=== PATIENT | female | born 1970 | race African-American/Black ===

== ENCOUNTER 2016-10-27 21:24 | Emergency (ER) | payer SELFPAY ==
[~2016-10-27] VITALS: Ht 162.6 cm; Wt 60.8 kg
[~2016-10-27 21:24] MED LIST: AMLO5TAB2 PO; AMOX1TAB10 PO; Amoxicillin PO; CARV12.52 PO; CARV6.252 PO; CEPH-264 PO; CIPR250T30 PO; CIPR500T94 PO; DOCU-27 PO; DOXY100T9 PO; FLUC100T7 PO; FLUC200T PO; FURO40TA4 PO; GABA-586 PO; INSU100C SQ; INSU100I27 SQ; INSU100V8 SQ; LISI-334 PO; LISI10TA2 PO; LISI1TAB3 PO; LISI20TA PO; LISI40TA PO; OXYC-244 PO; PANT40TA5 PO; POTA10TA12 PO; PROC10TA2 PO; SULF1TAB24 PO; VORI200T2 PO; lisinopril
[2016-10-27 21:50] VITALS: BP 189/104
[2016-10-27 22:33] LABS: BILIRUBIN,URINE NEGATIVE (NEG); GLUCOSE,URINE 250 mg/dL (NEG); NITRITE,URINE NEGATIVE (NEG); PH,URINE 6.5; PROTEIN,URINE 100 mg/dL (NEG-TRACE); UROBILINOGEN,URINE 0.2 mg/dL (0.2 mg/dL)
[2016-10-27 22:50] LABS: BACTERIA,URINE FEW /HPF (0-FEW); RBC,URINE OCC /HPF (0-2); SQUAMOUS EPITHELIAL CELL,UR FEW /LPF; WBC,URINE TNTC /HPF (0-4)
[2016-10-27 22:57] LABS: BASO # 0.1 x10^3/uL (0.0-0.2); BASO % 1 % (0-3); EOS % 2 % (0-3); HEMATOCRIT 31.9 % (36.0-47.0); HEMOGLOBIN 10.1 g/dL (12.0-15.5); LYMPH # 3.3 x10^3/uL (1.0-4.8); LYMPH % 27 % (24-48); MEAN CORPUSCULAR HEMOGLOBIN 24 pg (25-35); MEAN CORPUSCULAR HGB CONC 32 g/dL (31-37); MEAN CORPUSCULAR VOLUME 76 fL (79-100); MONO % 8 % (0-9); NEUT % 62 % (31-73); PLATELET COUNT 372 x10^3/uL (140-400); RED BLOOD COUNT 4.23 x10^6/uL (3.50-5.40); RED CELL DISTRIBUTION WIDTH 16.9 % (11.5-14.5); WHITE BLOOD COUNT 12.3 x10^3/uL (4.0-11.0)
[2016-10-27] MEDS ORDERED: KETOROLAC TROMETHAMINE 30 MG/ML SYRINGE. IV ONE (23:00)
[2016-10-27] MEDS ORDERED: ONDANSETRON PF 4 MG/2 ML VIAL. IV ONE (23:00)
--- NOTE | 2016-10-27 23:24 | PHYS DOC ---
Past Medical History Past Medical History: Anemia, CHF, Diabetes-Type II, Fibromyalgia, Hypertension , Sickle Cell Disease, Other Additional Past Medical Histor: Blood clot to R)leg, hypoalbuminemia, lower ext edema Past Surgical History: Cholecystectomy, Oophorectomy, Tubal ligation, Other Additional Past Surgical Histo: Drainage tube for gall bladder. , kidney stents x2, removal of left ovary Alcohol Use: None Drug Use: None Adult General Chief Complaint Chief Complaint: ABDOMINAL PAIN HPI HPI Patient is a 46 year old female who presents with bilateral low back pain and bilateral lower abdominal pain that started today around noon. She states both pains started approximately the same time and are achy and constant. She thinks this feels like prior urinary tract infections. She states she just finished antibiotics yesterday from prior admission, ciprofloxacin. She denies fever or chills, nausea or vomiting, dysuria, hematuria, vaginal bleeding or discharge, constipation, diarrhea. Review of Systems Review of Systems Constitutional: Denies fever or chills [] Eyes: Denies change in visual acuity, redness, or eye pain [] HENT: Denies nasal congestion or sore throat [] Respiratory: Denies cough or shortness of breath [] Cardiovascular: No additional information not addressed in HPI [] GI: Denies nausea, vomiting, bloody stools or diarrhea [] : Denies dysuria or hematuria [] Musculoskeletal: Denies joint pain [] Integument: Denies rash or skin lesions [] Neurologic: Denies headache, focal weakness or sensory changes [] Endocrine: Denies polyuria or polydipsia [] Current Medications Current Medications Current Medications Medications (Trade) Dose Ordered Sig/[facility] Start Time Stop Time Status Last Admin Dose Admin Ketorolac Tromethamine (Toradol) 10 mg 1X ONCE 10/27/16 23:00 10/27/16 23:01 DC 10/27/16 22:55 10 MG Ondansetron HCl (Zofran) 4 mg 1X ONCE 10/27/16 23:00 10/27/16 23:01 DC 10/27/16 22:54 4 MG Allergies Allergies Allergies Coded Allergies Type Severity Reaction Last Updated Verified No Known Medication Allergies Allergy Unknown 09/10/16 Yes oxycodone Adverse Reaction Intermediate Nausea 10/22/16 Yes Physical Exam Physical Exam Constitutional: Well developed, well nourished, no acute distress, non-toxic appearance. [] HENT: Normocephalic, atraumatic, bilateral external ears normal, oropharynx moist, nose normal. [] Eyes: PERRLA, EOMI. [] Neck: Normal range of motion, supple. [] Cardiovascular:Heart rate regular rhythm [] Lungs & Thorax: Bilateral breath sounds clear to auscultation [] Abdomen: Bowel sounds normal, soft, minimal bilateral lower abdominal tenderness , no pulsatile masses. [] Skin: Warm, dry, no erythema, no rash. [] Back: No midline spinal tenderness, no CVA tenderness. Has bilateral lumbar paraspinal tenderness with no visual or palpable abnormality [] Extremities: No tenderness, ROM intact, 2+ bilateral lower extremity edema. [] Neurologic: Alert and oriented X 3, normal motor function, normal sensory function, no focal deficits noted. [] Psychologic: Affect normal, judgement normal, mood normal. [] Current Patient Data Vital Signs Vital Signs Date Time Temp Pulse Resp B/P Pulse Ox O2 Delivery O2 Flow Rate FiO2 10/27/16 21:50 98.7 102 22 189/104 99 Room Air 98.7 Lab Values Laboratory Tests Test 10/27/16 21:55 10/27/16 22:15 Urine Collection Type Unknown Urine Color Yellow Urine Clarity Cloudy Urine pH 6.5 Urine Specific [place] 1.010 Urine Protein 100mg/dL (NEG-TRACE) Urine Glucose (UA) 250mg/dL (NEG) Urine Ketones (Stick) Negativemg/dL (NEG) Urine Blood Small (NEG) Urine Nitrite Negative (NEG) Urine Bilirubin Negative (NEG) Urine Urobilinogen Dipstick 0.2mg/dL (0.2 mg/dL) Urine Leukocyte Esterase Large (NEG) Urine RBC Occ/HPF (0-2) Urine WBC Tntc/HPF (0-4) Urine Squamous Epithelial Cells Few/LPF Urine Bacteria Few/HPF (0-FEW) White Blood Count 12.3x10^3/uL (4.0-11.0) H Red Blood Count 4.23x10^6/uL (3.50-5.40) Hemoglobin 10.1g/dL (12.0-15.5) L Hematocrit 31.9% (36.0-47.0) L Mean Corpuscular Volume 76fL (79-100) L Mean Corpuscular Hemoglobin 24pg (25-35) L Mean Corpuscular Hemoglobin Concent 32g/dL (31-37) Red Cell Distribution Width 16.9% (11.5-14.5) H Platelet Count 372x10^3/uL (140-400) Neutrophils (%) (Auto) 62% (31-73) Lymphocytes (%) (Auto) 27% (24-48) Monocytes (%) (Auto) 8% (0-9) Eosinophils (%) (Auto) 2% (0-3) Basophils (%) (Auto) 1% (0-3) Neutrophils # (Auto) 7.7x10^3uL (1.8-7.7) Lymphocytes # (Auto) 3.3x10^3/uL (1.0-4.8) Monocytes # (Auto) 0.9x10^3/uL (0.0-1.1) Eosinophils # (Auto) 0.2x10^3/uL (0.0-0.7) Basophils # (Auto) 0.1x10^3/uL (0.0-0.2) Sodium Level 135mmol/L (136-145) L Potassium Level 4.9mmol/L (3.5-5.1) Chloride Level 99mmol/L (98-107) Carbon Dioxide Level 28mmol/L (21-32) Anion Gap 8 (6-14) Blood Urea Nitrogen 37mg/dL (7-20) H Creatinine 1.9mg/dL (0.6-1.0) H Estimated GFR (Cockcroft-Gault) 34.3 Glucose Level 196mg/dL (70-99) H Calcium Level 8.7mg/dL (8.5-10.1) Laboratory Tests 10/27/16 22:15 Laboratory Tests 10/27/16 22:15 Course & Med Decision Making Course & Med Decision Making Pertinent Labs and Imaging studies reviewed. (See chart for details) Laboratory examination is unremarkable. Her urine appears very similar to prior examinations, and has rarely grown bacteria. She has undergone therapy for yeast in urine. She is to follow-up with urology at [facility] and has this appointment for next week. No narcotics were given during this encounter as she drove herself to the emergency department. Return precautions given. She understands plan. Dragon Disclaimer Dragon Disclaimer This electronic medical record was generated, in whole or in part, using a voice recognition dictation system. Departure Departure Impression: Primary Impression: Abdominal pain Additional Impression: Back pain Disposition: 01 HOME, SELF-CARE Condition: STABLE Referrals: NO PCP (PCP) Patient Instructions: Back Pain, Adult, [id number] Additional Instructions: Take Tylenol or ibuprofen as they for pain. Follow-up with your primary care doctor. Return for any concerns. Problem Qualifiers Primary Impression: Abdominal pain Abdominal location: lower abdomen, unspecified Qualified Code: R10.30 - Lower abdominal pain, unspecified Additional Impression: Back pain Back pain location: low back pain Chronicity: acute Back pain laterality: bilateral Sciatica presence: without sciatica Qualified Code: M54.5 - Low back pain Linden KEN MD Oct 27, 2016 23:24
[2016-10-27 23:27] LABS: CALCIUM 8.7 mg/dL (8.5-10.1); CREATININE 1.9 mg/dL (0.6-1.0); GFR 34.3; POTASSIUM 4.9 mmol/L (3.5-5.1)
== END 2016-10-27 23:45 | disposition home or self-care (01) ==
LOC: ER 21:26
DX: M54.5 Low back pain (principal); R10.30 Lower abdominal pain, unspecified; I11.0 Hypertensive heart disease with heart failure; I50.9 Heart failure, unspecified; M79.7 Fibromyalgia; E11.9 Type 2 diabetes mellitus without complications; Z87.440 Personal history of urinary (tract) infections; Z90.49 Acquired absence of other specified parts of digestive tract; Z90.721 Acquired absence of ovaries, unilateral; Z98.51 Tubal ligation status; Z88.5 Allergy status to narcotic agent
CPT/HCPCS: 36415; 80048; 81001; 85027; 96374; 96375; 99284; J1885; J2405; 87086

== ENCOUNTER 2016-11-02 19:59 | Emergency (ER) | payer SELFPAY ==
[~2016-11-02] VITALS: Ht 152.4 cm; Wt 60.8 kg
[2016-11-02 20:46] LABS: BILIRUBIN,URINE NEGATIVE (NEG); GLUCOSE,URINE >=1000 mg/dL (NEG); NITRITE,URINE NEGATIVE (NEG); PROTEIN,URINE 100 mg/dL (NEG-TRACE); UROBILINOGEN,URINE 0.2 mg/dL (0.2 mg/dL)
[2016-11-02 20:53] LABS: BACTERIA,URINE MODERATE /HPF (0-FEW); SQUAMOUS EPITHELIAL CELL,UR FEW /LPF; WBC,URINE TNTC /HPF (0-4)
[2016-11-02 21:22] LABS: BASO % 0 % (0-3); EOS % 1 % (0-3); HEMATOCRIT 31.7 % (36.0-47.0); HEMOGLOBIN 10.3 g/dL (12.0-15.5); LYMPH # 2.3 x10^3/uL (1.0-4.8); LYMPH % 22 % (24-48); MEAN CORPUSCULAR HEMOGLOBIN 24 pg (25-35); MEAN CORPUSCULAR HGB CONC 32 g/dL (31-37); MEAN CORPUSCULAR VOLUME 75 fL (79-100); MONO % 15 % (0-9); NEUT % 62 % (31-73); PLATELET COUNT 250 x10^3/uL (140-400); RED BLOOD COUNT 4.24 x10^6/uL (3.50-5.40); RED CELL DISTRIBUTION WIDTH 16.3 % (11.5-14.5); WHITE BLOOD COUNT 10.6 x10^3/uL (4.0-11.0)
[2016-11-02 21:30] VITALS: BP 167/94
[2016-11-02 21:30] LABS: CALCIUM 9.2 mg/dL (8.5-10.1); CREATININE 2.1 mg/dL (0.6-1.0); GFR 30.5; POTASSIUM 4.6 mmol/L (3.5-5.1)
[2016-11-02] MEDS ORDERED: IV NORMAL SALINE 1000ML BAG 1,000 ML IV SCH (21:30)
[2016-11-02] MEDS ORDERED: MORPHINE SULFATE 4 MG/ML DISP.SYRIN. IV ONE (21:30)
[2016-11-02 21:36] LABS: ALBUMIN 2.8 g/dL (3.4-5.0); ALBUMIN/GLOBULIN RATIO 0.5 (1.0-1.7); TOTAL BILIRUBIN 0.4 mg/dL (0.2-1.0); TOTAL PROTEIN 8.7 g/dL (6.4-8.2)
--- NOTE | 2016-11-02 22:26 | RAD ---
PROCEDURE CT of the abdomen and pelvis without contrast HISTORY Left-sided abdominal pain. Nausea. Vomiting. COMPARISON July 15, 2016. TECHNIQUE No intravenous or oral contrast as per request. Exposure: One or more of the following individualized dose reduction techniques were utilized for this exam: 1. Automated exposure control. 2. Adjustment of the mA and/or kV according to patient size. 3. Use of iterative reconstruction technique. FINDINGS Lung bases are clear. No evidence of pneumoperitoneum. Evaluation of solid viscera, GI tract and vasculature is limited by the noncontrast technique. The liver appears mildly enlarged measuring 21 centimeters cephalocaudal. This is similar to the prior study. Spleen grossly unremarkable. The pancreas is difficult to separate from adjacent on opacified bowel loops and difficult to evaluate. No evidence of an obvious adrenal mass. There is hydronephrosis of both kidneys with ureter dilatation. Bilateral stents are identified. On the right this begins in the lower right renal pelvis and extends to the urinary bladder. On the left, this begins in the proximal left ureter and extends to the urinary bladder. There is a calculus within the lower pole of the left kidney, also seen previously. There is some distention of the urinary bladder. Diffuse urinary bladder wall thickening this is greatest at the anterosuperior urinary bladder. This was also seen on the previous study. A urinary bladder tumor is not excludable. No evidence of ascites. No significant enlargement of visualized lymph nodes. There is degenerative spondylosis at the lumbosacral junction. IMPRESSION 1. Chronic bilateral hydronephrosis and ureter dilatation. Bilateral ureter stents now identified. The proximal aspect of the right stent is in the lower right renal pelvis. The proximal aspect of the left stent is in the upper left ureter. 2. Left nephrolithiasis. 3. Irregular urinary bladder wall thickening also seen previously. Findings could indicate chronic cystitis, chronic bladder outlet obstruction or neuropathic bladder. Urinary bladder wall tumor not excludable. Electronically signed by: Ramon Richards MD (Nov 02, 2016 22:25:39)
--- NOTE | 2016-11-03 00:34 | PHYS DOC ---
Past Medical History Past Medical History: Anemia, CHF, Diabetes-Type II, Fibromyalgia, Hypertension , Sickle Cell Disease, Other Additional Past Medical Histor: Blood clot to R)leg, hypoalbuminemia, lower ext edema Past Surgical History: Cholecystectomy, Oophorectomy, Tubal ligation, Other Additional Past Surgical Histo: Drainage tube for gall bladder. , kidney stents x2, removal of left ovary Alcohol Use: None Drug Use: None Adult General Chief Complaint Chief Complaint: PAIN ON URINATION HPI HPI Patient is a 46 year old female that presents with vomiting, diarrhea and a fever of 100.8 yesterday. Reports she has not taken any antipyretics today and has tolerated her po meds without difficulty but states vomiting and diarrhea since yesterday. Reports was seen here on 10/27/16 for bladder infection. Denies any urianry symptoms. Review of Systems Review of Systems Constitutional: Fever 100.8 yesterday Eyes: Denies change in visual acuity, redness, or eye pain HENT: Denies nasal congestion or sore throat Respiratory: Denies cough or shortness of breath Cardiovascular: No additional information not addressed in HPI GI: Abdominal pain, n/v/d : Denies dysuria or hematuria Musculoskeletal: Denies back pain or joint pain Integument: Denies rash or skin lesions Neurologic: Denies headache, focal weakness or sensory changes [] Endocrine: Denies polyuria or polydipsia [] Current Medications Current Medications Current Medications Medications (Trade) Dose Ordered Sig/[facility] Start Time Stop Time Status Last Admin Dose Admin Morphine Sulfate 4 mg 1X ONCE 11/02/16 21:30 11/02/16 21:31 DC 11/02/16 22:10 4 MG Sodium Chloride (Iv Sodium Chloride 0.9% 1000ml Bag) 1,000 ml @ 1,000 mls/hr Q1H 11/02/16 21:30 11/02/16 22:29 DC 11/02/16 22:10 1,000 MLS/HR Allergies Allergies Allergies Coded Allergies Type Severity Reaction Last Updated Verified No Known Medication Allergies Allergy Unknown 09/10/16 Yes oxycodone Adverse Reaction Intermediate Nausea 10/22/16 Yes Physical Exam Physical Exam Constitutional: Well developed, well nourished, no acute distress, non-toxic appearance. HENT: Normocephalic, atraumatic, bilateral external ears normal, oropharynx moist, no oral exudates, nose normal. Eyes: PERRLA, EOMI, conjunctiva normal, no discharge. Neck: Normal range of motion, no tenderness, supple, no stridor. Cardiovascular:Heart rate regular rhythm, no murmur Lungs & Thorax: Bilateral breath sounds clear to auscultation Abdomen: Bowel sounds normal, soft, no masses, no pulsatile masses. Tenderness throughout Skin: Warm, dry, no erythema, no rash. Back: No tenderness, no CVA tenderness. Extremities: No tenderness, no cyanosis, no clubbing, ROM intact, no edema. Neurologic: Alert and oriented X 3, normal motor function, normal sensory function, no focal deficits noted. Psychologic: Affect normal, judgement normal, mood normal. Current Patient Data Vital Signs Vital Signs Date Time Temp Pulse Resp B/P Pulse Ox O2 Delivery O2 Flow Rate FiO2 11/02/16 22:10 22 99 Room Air 11/02/16 20:15 99.3 114 162/108 99.3 Lab Values Laboratory Tests Test 11/02/16 20:20 11/02/16 21:10 11/02/16 23:29 Urine Collection Type Unknown Urine Color Yellow Urine Clarity Turbid Urine pH 6.0 Urine Specific [place] 1.015 Urine Protein 100mg/dL (NEG-TRACE) Urine Glucose (UA) >=1000mg/dL (NEG) Urine Ketones (Stick) Negativemg/dL (NEG) Urine Blood Moderate (NEG) Urine Nitrite Negative (NEG) Urine Bilirubin Negative (NEG) Urine Urobilinogen Dipstick 0.2mg/dL (0.2 mg/dL) Urine Leukocyte Esterase Large (NEG) Urine RBC 1-2/HPF (0-2) Urine WBC Tntc/HPF (0-4) Urine Squamous Epithelial Cells Few/LPF Urine Bacteria Moderate/HPF (0-FEW) White Blood Count 10.6x10^3/uL (4.0-11.0) Red Blood Count 4.24x10^6/uL (3.50-5.40) Hemoglobin 10.3g/dL (12.0-15.5) L Hematocrit 31.7% (36.0-47.0) L Mean Corpuscular Volume 75fL (79-100) L Mean Corpuscular Hemoglobin 24pg (25-35) L Mean Corpuscular Hemoglobin Concent 32g/dL (31-37) Red Cell Distribution Width 16.3% (11.5-14.5) H Platelet Count 250x10^3/uL (140-400) Neutrophils (%) (Auto) 62% (31-73) Lymphocytes (%) (Auto) 22% (24-48) L Monocytes (%) (Auto) 15% (0-9) H Eosinophils (%) (Auto) 1% (0-3) Basophils (%) (Auto) 0% (0-3) Neutrophils # (Auto) 6.6x10^3uL (1.8-7.7) Lymphocytes # (Auto) 2.3x10^3/uL (1.0-4.8) Monocytes # (Auto) 1.5x10^3/uL (0.0-1.1) H Eosinophils # (Auto) 0.1x10^3/uL (0.0-0.7) Basophils # (Auto) 0.0x10^3/uL (0.0-0.2) Sodium Level 130mmol/L (136-145) L Potassium Level 4.6mmol/L (3.5-5.1) Chloride Level 95mmol/L (98-107) L Carbon Dioxide Level 27mmol/L (21-32) Anion Gap 8 (6-14) Blood Urea Nitrogen 47mg/dL (7-20) H Creatinine 2.1mg/dL (0.6-1.0) H Estimated GFR (Cockcroft-Gault) 30.5 BUN/Creatinine Ratio 22 (6-20) H Glucose Level 274mg/dL (70-99) H Lactic Acid Level 1.2mmol/L (0.4-2.0) Calcium Level 9.2mg/dL (8.5-10.1) Total Bilirubin 0.4mg/dL (0.2-1.0) Aspartate Amino Transferase (AST) 16U/L (15-37) Alanine Aminotransferase (ALT) 27U/L (14-59) Alkaline Phosphatase 165U/L (46-116) H Total Protein 8.7g/dL (6.4-8.2) H Albumin 2.8g/dL (3.4-5.0) L Albumin/Globulin Ratio 0.5 (1.0-1.7) L Lipase 73U/L (73-393) Glucose (Fingerstick) 143mg/dL (70-99) H Laboratory Tests 11/02/16 21:10 Laboratory Tests 11/02/16 21:10 EKG EKG [] Radiology/Procedures Radiology/Procedures [] Impressions: 1. Vomiting and diarrhea Course & Med Decision Making Course & Med Decision Making Pertinent Labs and Imaging studies reviewed. (See chart for details) Urine showed large leukocyte esterase and Tntc bacteria as with several urines in the past. Review of micro show no growth. Instructed patient to follow up with urology to discuss. Today and past labs reviewed, often flucuations in BUN and creatinine. Patient has had no nausea, vomiting, diarrhea, or fever during 4 hour visit and tolerating po fluids iwthout difficulty. HR 99, BP 112/73, RA Sat 99%. Patient awake and alert and denies pain at this time. Instructed patient to call a ride for discharge home, discussed plan of care and given return precautions which she agreed and verbalized. Dragon Disclaimer Dragon Disclaimer This electronic medical record was generated, in whole or in part, using a voice recognition dictation system. Departure Departure Impression: Primary Impression: UTI (lower urinary tract infection) Additional Impression: Nausea, vomiting and diarrhea Disposition: HOME, SELF-CARE Condition: STABLE Referrals: NO PCP (PCP) Patient Instructions: Nausea and Vomiting, [id number] Additional Instructions: 1. Call our urologist Friday morning to follow up 2. Return if problems or concerns Problem Qualifiers ELIO HARPER APRN Nov 03, 2016 00:34
== END 2016-11-03 01:26 | disposition home or self-care (01) ==
LOC: ER 19:59
DX: N39.0 Urinary tract infection, site not specified (principal); R11.2 Nausea with vomiting, unspecified; R19.7 Diarrhea, unspecified; E11.9 Type 2 diabetes mellitus without complications; M79.7 Fibromyalgia; I11.0 Hypertensive heart disease with heart failure; I50.9 Heart failure, unspecified; Z90.49 Acquired absence of other specified parts of digestive tract; Z98.51 Tubal ligation status; Z90.721 Acquired absence of ovaries, unilateral; Z87.442 Personal history of urinary calculi; Z88.5 Allergy status to narcotic agent
CPT/HCPCS: 36415; 74176; 80053; 81001; 82947; 83605; 83690; 85027; 87040; 87086; 96361; 96374; 99285; J2270; J7030

== ENCOUNTER 2016-11-10 17:56 | Emergency (ER) | payer SELFPAY ==
[~2016-11-10] VITALS: Ht 162.6 cm; Wt 59.0 kg
[2016-11-10 18:22] LABS: BILIRUBIN,URINE NEGATIVE (NEG); GLUCOSE,URINE NEGATIVE (NEG); NITRITE,URINE NEGATIVE (NEG); PROTEIN,URINE >=300 mg/dL (NEG-TRACE); UROBILINOGEN,URINE 0.2 mg/dL (0.2 mg/dL)
[2016-11-10] MEDS ORDERED: LEVOFLOXACIN 500 MG TABLET PO ONE (18:30)
[2016-11-10] MEDS ORDERED: PHENAZOPYRIDINE 200 MG TABLET. PO ONE (18:30)
[2016-11-10 18:41] LABS: BACTERIA,URINE FEW /HPF (0-FEW); SQUAMOUS EPITHELIAL CELL,UR FEW /LPF; WBC,URINE TNTC /HPF (0-4)
[2016-11-10] MEDS ORDERED: LEVO500T38 PO (19:07)
[2016-11-10] MEDS ORDERED: PHEN-318 PO (19:07)
[2016-11-10] MEDS ORDERED: HYDR-971 PO (19:07)
--- NOTE | 2016-11-10 19:08 | PHYS DOC ---
Past Medical History Past Medical History: Anemia, CHF, Diabetes-Type II, Fibromyalgia, Hypertension , Sickle Cell Disease, Other Additional Past Medical Histor: Blood clot to R)leg, hypoalbuminemia, lower ext edema Past Surgical History: Cholecystectomy, Oophorectomy, Tubal ligation, Other Additional Past Surgical Histo: Drainage tube for gall bladder. , kidney stents x2, removal of left ovary Alcohol Use: None Drug Use: None Adult General Chief Complaint Chief Complaint: PAIN ON URINATION HPI HPI 46-year-old female with a history of multiple urinary tract infections presents with painful urination and suprapubic pain. She states is been ongoing over the last day or 2. She denies any flank pain. She denies any high fever at home. She denies any nausea or vomiting. She states it's been 10 days since she's taken antibiotics. [] Review of Systems Review of Systems Constitutional: Denies fever or chills [] Eyes: Denies change in visual acuity, redness, or eye pain [] HENT: Denies nasal congestion or sore throat [] Respiratory: Denies cough or shortness of breath [] Cardiovascular: No additional information not addressed in HPI [] GI: Denies abdominal pain, nausea, vomiting, bloody stools or diarrhea [] : Per history of present illness [] Musculoskeletal: Denies back pain or joint pain [] Integument: Denies rash or skin lesions [] Neurologic: Denies headache, focal weakness or sensory changes [] Endocrine: Denies polyuria or polydipsia [] Current Medications Current Medications Current Medications Medications (Trade) Dose Ordered Sig/[facility] Start Time Stop Time Status Last Admin Dose Admin Levofloxacin (Levaquin) 500 mg 1X ONCE 11/10/16 18:30 11/10/16 18:31 DC 11/10/16 18:45 500 MG Phenazopyridine HCl (Pyridium) 200 mg 1X ONCE 11/10/16 18:30 11/10/16 18:31 DC 11/10/16 18:45 200 MG Allergies Allergies Allergies Coded Allergies Type Severity Reaction Last Updated Verified No Known Medication Allergies Allergy Unknown 09/10/16 Yes oxycodone Adverse Reaction Intermediate Nausea 10/22/16 Yes Physical Exam Physical Exam Constitutional: Well developed, well nourished, mild distress, non-toxic appearance. [] HENT: Normocephalic, atraumatic, bilateral external ears normal, oropharynx moist, no oral exudates, nose normal. [] Eyes: PERRLA, EOMI, conjunctiva normal, no discharge. [] Neck: Normal range of motion, no tenderness, supple, no stridor. [] Cardiovascular:Heart rate regular rhythm, no murmur [] Lungs & Thorax: Bilateral breath sounds clear to auscultation [] Abdomen: Bowel sounds normal, soft, no tenderness, no masses, no pulsatile masses. [] Skin: Warm, dry, no erythema, no rash. [] Back: No tenderness, no CVA tenderness. [] Extremities: No tenderness, no cyanosis, no clubbing, ROM intact, no edema. [] Neurologic: Alert and oriented X 3, normal motor function, normal sensory function, no focal deficits noted. [] Psychologic: Affect normal, judgement normal, mood normal. [] Current Patient Data Vital Signs Vital Signs Date Time Temp Pulse Resp B/P Pulse Ox O2 Delivery O2 Flow Rate FiO2 11/10/16 18:04 98.5 93 18 96 Room Air 98.5 Lab Values Laboratory Tests Test 11/10/16 18:10 Urine Collection Type Unknown Urine Color Yellow Urine Clarity Turbid Urine pH 6.0 Urine Specific [place] 1.010 Urine Protein >=300mg/dL (NEG-TRACE) Urine Glucose (UA) Negativemg/dL (NEG) Urine Ketones (Stick) Negativemg/dL (NEG) Urine Blood Moderate (NEG) Urine Nitrite Negative (NEG) Urine Bilirubin Negative (NEG) Urine Urobilinogen Dipstick 0.2mg/dL (0.2 mg/dL) Urine Leukocyte Esterase Large (NEG) Urine RBC 1-2/HPF (0-2) Urine WBC Tntc/HPF (0-4) Urine Squamous Epithelial Cells Few/LPF Urine Bacteria Few/HPF (0-FEW) EKG EKG [] Radiology/Procedures Radiology/Procedures [] Course & Med Decision Making Course & Med Decision Making Pertinent Labs and Imaging studies reviewed. (See chart for details) [] Dragon Disclaimer Dragon Disclaimer This electronic medical record was generated, in whole or in part, using a voice recognition dictation system. Departure Departure Impression: Primary Impression: UTI (urinary tract infection) Disposition: 01 HOME, SELF-CARE Condition: STABLE Referrals: NO PCP (PCP) Patient Instructions: Urinary Tract Infection Additional Instructions: Thank you for allowing us to participate in your care today. Followup with your primary care physician in 3 days if your symptoms do not improve. Return to the emergency department you have any new or concerning findings. This should be evaluated by the primary care physician and any necessary consulting services for continued management within a few days after discharge. Return to emergency room if you have any new or concerning symptoms including but not limited to fever, chills, nausea, vomiting, intractable pain, any new rashes, chest pain, shortness of air, uncontrolled bleeding, difficulty breathing, and/or vision loss. You may have been prescribed medication that can change in your level of thinking and ability to operate machinery. These medications include hydrocodone and Ativan. Also, Benadryl has been known to do this as well. Be sure to check with your pharmacist and ask if the medications you've prescribed can affect your level of consciousness. I recommend not operating heavy machinery or driving while on medication such as these. Scripts Phenazopyridine Hcl (Pyridium)200 Mg [id number] Mg PO Q8HRS PRN DYSURIA #10 TAB Prov:TETE FRIEDMAN DO 11/10/16 Hydrocodone/[place] 5-325 ([place] 5-325 Tablet)1 Each Tablet1 Tab PO PRN Q6HRS PRN PAIN #20 TAB Prov:TETE FRIEDMAN DO 11/10/16 Levofloxacin (Levaquin)500 Mg Tablet1 Tab PO DAILY urinary tract infection #10 TAB Prov:TETE FRIEDMAN DO 11/10/16 Problem Qualifiers Primary Impression: UTI (urinary tract infection) Urinary tract infection type: acute cystitis Hematuria presence: without hematuria Qualified Code: N30.00 - Acute cystitis without hematuria TETE FRIEDMAN DO Nov 10, 2016 19:08
[2016-11-10 19:18] VITALS: BP 160/105
== END 2016-11-10 19:20 | disposition home or self-care (01) ==
LOC: ER 17:56
DX: N30.00 Acute cystitis without hematuria (principal); I11.0 Hypertensive heart disease with heart failure; I50.9 Heart failure, unspecified; E11.9 Type 2 diabetes mellitus without complications; M79.7 Fibromyalgia; Z90.49 Acquired absence of other specified parts of digestive tract; Z98.51 Tubal ligation status; Z90.79 Acquired absence of other genital organ(s); Z88.5 Allergy status to narcotic agent
CPT/HCPCS: 81001; 87086; 99284

== ENCOUNTER 2016-11-21 04:05 | Inpatient (IN) | payer OTHER ==
[~2016-11-21] VITALS: Ht 162.6 cm; Wt 61.2 kg
[~2016-11-21 04:05] MED LIST changes: +HYDR-971 PO; +LEVO500T38 PO; +PHEN-318 PO
[2016-11-21] MEDS ORDERED: IV NORMAL SALINE 1000ML BAG 1,000 ML IV SCH (04:45)
[2016-11-21] MEDS ORDERED: ONDANSETRON PF 4 MG/2 ML VIAL. IV ONE ×2 (04:45→05:45)
[2016-11-21 04:51] LABS: BASO # 0.2 x10^3/uL (0.0-0.2); BASO % 2 % (0-3); EOS % 1 % (0-3); HEMATOCRIT 32.8 % (36.0-47.0); HEMOGLOBIN 10.3 g/dL (12.0-15.5); LYMPH # 1.6 x10^3/uL (1.0-4.8); LYMPH % 12 % (24-48); MEAN CORPUSCULAR HEMOGLOBIN 23 pg (25-35); MEAN CORPUSCULAR HGB CONC 31 g/dL (31-37); MEAN CORPUSCULAR VOLUME 75 fL (79-100); MONO % 5 % (0-9); NEUT % 81 % (31-73); PLATELET COUNT 295 x10^3/uL (140-400); RED BLOOD COUNT 4.39 x10^6/uL (3.50-5.40); RED CELL DISTRIBUTION WIDTH 15.5 % (11.5-14.5); WHITE BLOOD COUNT 13.1 x10^3/uL (4.0-11.0)
[2016-11-21 04:51] LABS: BILIRUBIN,URINE NEGATIVE (NEG); GLUCOSE,URINE 500 mg/dL (NEG); NITRITE,URINE NEGATIVE (NEG); UROBILINOGEN,URINE 0.2 mg/dL (0.2 mg/dL)
[2016-11-21 04:58] LABS: BARBITURATES NEG (NEG); BENZODIAZEPINES NEG (NEG); CANNABINOIDS NEG (NEG); COCAINE NEG (NEG); ETHANOL, URINE NEG (NEG); METHADONE NEG (NEG); OPIATES POS (NEG); PHENCYCLIDINE NEG (NEG)
[2016-11-21 05:03] LABS: CALCIUM 9.4 mg/dL (8.5-10.1); CREATININE 2.4 mg/dL (0.6-1.0); GFR 26.2; POTASSIUM 4.7 mmol/L (3.5-5.1)
[2016-11-21 05:03] LABS: PROTEIN,URINE 30 mg/dL (NEG-TRACE)
[2016-11-21 05:04] LABS: BACTERIA,URINE FEW /HPF (0-FEW); RBC,URINE OCC /HPF (0-2); SQUAMOUS EPITHELIAL CELL,UR OCC /LPF; WBC,URINE TNTC /HPF (0-4); YEAST,URINE PRESENT /HPF
[2016-11-21 05:09] LABS: ALBUMIN 2.8 g/dL (3.4-5.0); ALBUMIN/GLOBULIN RATIO 0.5 (1.0-1.7); TOTAL BILIRUBIN 0.4 mg/dL (0.2-1.0); TOTAL PROTEIN 8.9 g/dL (6.4-8.2)
[2016-11-21] MEDS ORDERED: IV NORMAL SALINE 1000ML BAG 1,000 ML IV ONE (05:30)
[2016-11-21] MEDS ORDERED: DEXTROSE 50% 25 GM / 50ML DISP.SYRIN. IV PRN (05:30)
[2016-11-21] MEDS ORDERED: ONDANSETRON PF 4 MG/2 ML VIAL. IV PRN ×2 (06:30→07:52)
[2016-11-21] MEDS ORDERED: ACETAMINOPHEN 325 MG TABLET. PO PRN (06:30)
--- NOTE | 2016-11-21 06:30 | ED.ADGEN ---
Past Medical History Past Medical History: Anemia, CHF, Diabetes-Type I, Fibromyalgia, Hypertension , Sickle Cell Disease, Other Additional Past Medical Histor: Blood clot to R)leg, hypoalbuminemia, lower ext edema Past Surgical History: Cholecystectomy, Oophorectomy, Tubal ligation, Other Additional Past Surgical Histo: Drainage tube for gall bladder. , kidney stents x2, removal of left ovary Alcohol Use: None Drug Use: None Adult General Chief Complaint Chief Complaint: NAUSEA/VOMITING/DIARRHA HPI HPI Patient is a 46 year old woman, history of type 2 diabetes mellitus, hypertension, hyperlipidemia, kidney stents in place, chronic urinary tract infection, who presents to the emergency department with complaint of chills, nausea, vomiting, lower quadrant abdominal pain for the past several days. Patient was admitted on the of this month for abdominal pain, and urinary complaints, did sign an AGAINST MEDICAL ADVICE. Patient has been told multiple times to follow-up with urology. It experiencing some dysuria. She has not done so at this point. She states that she is taking medications as directed, however her blood glucose in the ED is noted to be 468. Patient with emesis in the emergency department, denies blood or bile in emesis, states her last bowel movement was earlier today, she did have some diarrhea, states that the abdominal pain is "typical", denies fevers, chills as stated, no focal weakness emesis or tingling, no cough, no nasal congestion, no shortness of breath, no chest pain. Denies any injuries. Has not followed up with urology this point, and does not have a primary care provider. Review of Systems Review of Systems Constitutional: Denies fever, complaining of chills. Eyes: Denies change in visual acuity. [] HENT: Denies nasal congestion or sore throat. [] Respiratory: Denies cough or shortness of breath. [] Cardiovascular: Denies chest pain or edema. [] GI: Lower quadrant abdominal pain associated nausea, vomiting, no bloody stools or diarrhea. [] : Denies dysuria. [] Musculoskeletal: Denies back pain or joint pain. [] Integument: Denies rash. [] Neurologic: Denies headache, focal weakness or sensory changes. [] Endocrine: Denies polyuria or polydipsia. [] Lymphatic: Denies swollen glands. [] Psychiatric: Denies depression or anxiety. [] Current Medications Current Medications Current Medications Medications (Trade) Dose Ordered Sig/Therese Start Time Stop Time Status Last Admin Dose Admin Ondansetron HCl (Zofran) 4 mg 1X ONCE 11/21/16 04:45 11/21/16 04:46 DC 11/21/16 04:46 4 MG Sodium Chloride (Iv Sodium Chloride 0.9% 1000ml Bag) 1,000 ml @ 1,000 mls/hr Q1H 11/21/16 04:45 11/21/16 05:44 DC 11/21/16 04:47 1,000 MLS/HR Allergies Allergies Allergies Coded Allergies Type Severity Reaction Last Updated Verified No Known Medication Allergies Allergy Unknown 09/10/16 Yes Physical Exam Physical Exam Constitutional: Well developed, well nourished, mild distress secondary to pain and nausea, ill in appearance. HENT: Normocephalic, atraumatic, bilateral external ears normal, oropharynx moist, no oral exudates, nose normal. [] Eyes: PERRLA, EOMI, conjunctiva normal, no discharge. [] Neck: Normal range of motion, no tenderness, supple, no stridor. [] Cardiovascular:Heart rate regular rhythm, no murmur , S1, S2, rubs or gallops. [ ] Lungs & Thorax: Bilateral breath sounds clear to auscultation, no wheezing, rhonchi, rales. No chest or crepitus or tenderness. [] Abdomen: Bowel sounds normal, soft, mild tenderness to palpation in the suprapubic region and the lower quadrant, no rebound, rigidity, no guarding, no masses, no pulsatile masses. [] Skin: Warm, dry, no erythema, no rash. [] Back: No tenderness, mild bilateral CVA tenderness. [] Extremities: No tenderness, no cyanosis, no clubbing, ROM intact, no edema. [] Neurologic: Alert and oriented X 3, normal motor function, normal sensory function, no focal deficits noted. [] Psychologic: Affect normal, judgement normal, mood normal. [] Current Patient Data Vital Signs Vital Signs Date Time Temp Pulse Resp B/P Pulse Ox O2 Delivery O2 Flow Rate FiO2 11/21/16 04:12 98.2 100 18 178/107 100 Room Air 98.2 Lab Values Laboratory Tests Test 11/21/16 04:10 11/21/16 04:22 Urine Collection Type Unknown Urine Color Yellow Urine Clarity Turbid Urine pH 6.0 Urine Specific [place] 1.010 Urine Protein 30mg/dL (NEG-TRACE) Urine Glucose (UA) 500mg/dL (NEG) Urine Ketones (Stick) Negativemg/dL (NEG) Urine Blood Moderate (NEG) Urine Nitrite Negative (NEG) Urine Bilirubin Negative (NEG) Urine Urobilinogen Dipstick 0.2mg/dL (0.2 mg/dL) Urine Leukocyte Esterase Large (NEG) Urine RBC Occ/HPF (0-2) Urine WBC Tntc/HPF (0-4) Urine Squamous Epithelial Cells Occ/LPF Urine Bacteria Few/HPF (0-FEW) Urine Yeast Present/HPF Urine Opiates Screen Pos (NEG) Urine Methadone Screen Neg (NEG) Urine Barbiturates Neg (NEG) Urine Phencyclidine Screen Neg (NEG) Urine Amphetamine/Methamphetamine Neg (NEG) Urine Benzodiazepines Screen Neg (NEG) Urine Cocaine Screen Neg (NEG) Urine Cannabinoids Screen Neg (NEG) Urine Ethyl Alcohol Neg (NEG) White Blood Count 13.1x10^3/uL (4.0-11.0) H Red Blood Count 4.39x10^6/uL (3.50-5.40) Hemoglobin 10.3g/dL (12.0-15.5) L Hematocrit 32.8% (36.0-47.0) L Mean Corpuscular Volume 75fL (79-100) L Mean Corpuscular Hemoglobin 23pg (25-35) L Mean Corpuscular Hemoglobin Concent 31g/dL (31-37) Red Cell Distribution Width 15.5% (11.5-14.5) H Platelet Count 295x10^3/uL (140-400) Neutrophils (%) (Auto) 81% (31-73) H Lymphocytes (%) (Auto) 12% (24-48) L Monocytes (%) (Auto) 5% (0-9) Eosinophils (%) (Auto) 1% (0-3) Basophils (%) (Auto) 2% (0-3) Neutrophils # (Auto) 10.6x10^3uL (1.8-7.7) H Lymphocytes # (Auto) 1.6x10^3/uL (1.0-4.8) Monocytes # (Auto) 0.6x10^3/uL (0.0-1.1) Eosinophils # (Auto) 0.1x10^3/uL (0.0-0.7) Basophils # (Auto) 0.2x10^3/uL (0.0-0.2) Sodium Level 129mmol/L (136-145) L Potassium Level 4.7mmol/L (3.5-5.1) Chloride Level 92mmol/L (98-107) L Carbon Dioxide Level 30mmol/L (21-32) Anion Gap 7 (6-14) Blood Urea Nitrogen 45mg/dL (7-20) H Creatinine 2.4mg/dL (0.6-1.0) H Estimated GFR (Cockcroft-Gault) 26.2 BUN/Creatinine Ratio 19 (6-20) Glucose Level 468mg/dL (70-99) H Calcium Level 9.4mg/dL (8.5-10.1) Total Bilirubin 0.4mg/dL (0.2-1.0) Aspartate Amino Transferase (AST) 29U/L (15-37) Alanine Aminotransferase (ALT) 39U/L (14-59) Alkaline Phosphatase 260U/L (46-116) H Total Protein 8.9g/dL (6.4-8.2) H Albumin 2.8g/dL (3.4-5.0) L Albumin/Globulin Ratio 0.5 (1.0-1.7) L Lipase 58U/L (73-393) L Laboratory Tests 11/21/16 04:22 Laboratory Tests 11/21/16 04:22 EKG EKG EC: Sinus rhythm, heart rate 90 bpm, left axis deviation, QTC of 427, [place] 144, QRS 86, contour normality is noted in the anterior septal leads, [address] elevations noted in V3, no other elevations or depressions identified, mild baseline artifact noted, abnormal ECG, does not meet STEMI criteria. As interpreted by me. Radiology/Procedures Radiology/Procedures Acute abdominal series: 3 view: Normal cardiopulmonary silhouette, no infiltrates, no effusions, no pneumothorax, no soft tissue or bony abnormalities identified. No evidence of air-fluid levels or small bowel obstruction. Stool bowel gas throughout. As interpreted by me. Course & Med Decision Making Course & Med Decision Making Pertinent Labs and Imaging studies reviewed. (See chart for details) Patient with several episodes of emesis in the ED, received IV fluids, antiemetics, blood glucose of 468 on arrival. Urinalysis was positive for glucose, no ketones, no anion gap identified. Patient again noted to have too numerous to wbc's, some bacteria in the urine. Review previous cultures reveals the patient had chronic [place] infection in the urine, previous no from urology indicated use antibiotics and follow cultures. As patient now has a leukocytosis, with left shift, evidence of worsening renal insufficiency with a creatinine of 2.4 and elevated blood urea nitrogen, with examination consistent with pyelonephritis, patient did receive IV fluids in the ED, initial dose of ceftriaxone, will follow cultures and adjust medications as needed as discussed with Dr. Marte of internal medicine, who did accept the patient to her service as a full admission to the medical telemetry floor, bridge orders written per request for consultation with urology, although the patient has been seen by Dr. Blue multiple times and has failed to follow-up as an outpatient, and initiation of insulin protocol. Urine cultures are pending at this time. Patient transferred to the floor without issue. Dragon Disclaimer Dragon Disclaimer This electronic medical record was generated, in whole or in part, using a voice recognition dictation system. Departure Impression: Primary Impression: Pyelonephritis Additional Impressions: Hyperglycemia Nausea, vomiting and diarrhea Noncompliance w/medication treatment due to intermit use of medication Disposition: 09 ADMITTED INPATIENT Condition: IMPROVED Problem Qualifiers THOMAS THOMAS DO Nov 21, 2016 06:30
--- NOTE | 2016-11-21 06:39 | EKG ---
[facility] [address] [place] [address] Test Date: 2016-11-21 Test Time: 04:54:30 Pat Name: WENDI WEST Department: Room: 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
[2016-11-21 06:55] VITALS: BP 146/100
--- NOTE | 2016-11-21 07:15 | RAD ---
Abdomen series with chest, 3 views, 11/21/2016: History: Abdominal pain and vomiting Comparison is made to a study from 10/10/2016. Bilateral ureteral stents remain in place, unchanged in positions. The abdominal gas pattern is unremarkable. No free air is seen in the abdomen. There is no evidence of organomegaly. There is an unchanged radiopacity projected over the lower pole of the left kidney compatible with a persistent intrarenal calculus. Lower pelvic calcifications are compatible with phleboliths. The heart size is normal. The lungs are clear. There is no evidence of pleural fluid. IMPRESSION: 1. Bilateral ureteral stents are unchanged in positions. 2. Left intrarenal calculus. 3. No acute abnormality is detected.
[2016-11-21] MEDS ORDERED: INSULIN ASPART 300 UNITS/3 ML INSULN.PEN SQ SCH (08:00)
[2016-11-21] MEDS: MORPHINE SULFATE 2 MG/ML DISP.SYRIN. IV PRN ×3 (08:23→22:10)
[2016-11-21] MEDS: IV NORMAL SALINE 1000ML BAG 1,000 ML IV SCH ×2 (08:45→19:47)
[2016-11-21] MEDS ORDERED: INSULIN ASPART 300 UNITS/3 ML INSULN.PEN SQ ONE (08:45)
--- NOTE | 2016-11-21 09:34 | PDOC1 ---
History and Physical Past Medical History Cardiovascular: CHF, HTN Pulmonary: No pertinent hx CENTRAL NERVOUS SYSTEM: Other GI: GERD Heme/Onc: Sickle cell disease, Other Hepatobiliary: No pertinent hx Psych: No pertinent hx Rheumatologic: No pertinent hx Infectious disease: No pertinent hx Renal/: Other Endocrine: Diabetes Past Surgical History Past Surgical History: Cholecystectomy, Tubal Ligation, Other Family History Family History: Diabetes Social History ALCOHOL: none Drugs: None Current Problem List Problem List Problems Medical Problems: (1) Hyperglycemia Status: Acute (2) Nausea, vomiting and diarrhea Status: Acute (3) Noncompliance w/medication treatment due to intermit use ofmedication Status: Acute (4) Pyelonephritis Status: Acute Current Medications Current Medications Current Medications Medications (Trade) Dose Ordered Sig/Therese Start Time Stop Time Status Last Admin Dose Admin Acetaminophen (Tylenol) 650 mg PRN Q4HRS PRN 11/21/16 06:30 11/22/16 06:29 Dextrose 12.5 gm PRN Q15MIN PRN 11/21/16 05:30 Insulin Aspart (Novolog) 15 units 1X ONCE 11/21/16 08:45 11/21/16 08:46 DC 11/21/16 08:45 15 UNITS Morphine Sulfate 2 mg PRN Q2HR PRN 11/21/16 08:00 11/21/16 08:23 2 MG Ondansetron HCl (Zofran) 4 mg PRN Q6HRS PRN 11/21/16 07:52 Ondansetron HCl 4 mg 4 mg PRN Q8HRS PRN 11/21/16 06:30 11/21/16 07:57 DC 11/21/16 07:21 4 MG Sodium Chloride (Iv Sodium Chloride 0.9% 1000ml Bag) 1,000 ml @ 100 mls/hr Q10H 11/21/16 06:30 11/22/16 06:29 11/21/16 08:45 100 MLS/HR Allergies Allergies Allergies Coded Allergies Type Severity Reaction Last Updated Verified No Known Medication Allergies Allergy Unknown 09/10/16 Yes ROS Review of System CONSTITUTIONAL: No fever or chills EYES: No recent changes SKIN: No rash or itching CARDIOVASCULAR: No chest pain, syncope, palpitations, or edema RESPIRATORY: No SOB or cough GASTROINTESTINAL: nausea, vomiting or abdominal pain NEUROLOGICAL: No headaches or weakness ENDOCRINE: No cold or heat intolerance GENITOURINARY: No urgency or frequency of urination MUSCULOSKELETAL: No back pain or joint pain LYMPHATICS: No enlarged lymph nodes PSYCHIATRIC: No anxiety or depression Physical Exam Physical Exam GEN.: No apparent distress. Alert and oriented. fatigue HEENT: Head is normocephalic, atraumatic NECK: Supple.no jvd LUNGS: Clear to auscultation. normal airflow HEART: RRR, S1, S2 present. Peripheral pulses intact ABDOMEN: Soft, nontender. Positive bowel sounds. EXTREMITIES: Without any cyanosis. NEUROLOGIC: Normal speech, normal tone PSYCHIATRIC: Normal affect, normal mood. SKIN: No visible ulcerations Vitals Vitals Vital Signs Date Time Temp Pulse Resp B/P Pulse Ox O2 Delivery O2 Flow Rate FiO2 11/21/16 08:56 99 Room Air 11/21/16 06:55 97.5 94 17 146/100 97.5 Labs Labs Laboratory Tests Test 11/21/16 04:10 11/21/16 04:22 11/21/16 06:56 Urine Collection Type Unknown Urine Color Yellow Urine Clarity Turbid Urine pH 6.0 Urine Specific [place] 1.010 Urine Protein 30mg/dL (NEG-TRACE) Urine Glucose (UA) 500mg/dL (NEG) Urine Ketones (Stick) Negativemg/dL (NEG) Urine Blood Moderate (NEG) Urine Nitrite Negative (NEG) Urine Bilirubin Negative (NEG) Urine Urobilinogen Dipstick 0.2mg/dL (0.2 mg/dL) Urine Leukocyte Esterase Large (NEG) Urine RBC Occ/HPF (0-2) Urine WBC Tntc/HPF (0-4) Urine Squamous Epithelial Cells Occ/LPF Urine Bacteria Few/HPF (0-FEW) Urine Yeast Present/HPF Urine Opiates Screen Pos (NEG) Urine Methadone Screen Neg (NEG) Urine Barbiturates Neg (NEG) Urine Phencyclidine Screen Neg (NEG) Urine Amphetamine/Methamphetamine Neg (NEG) Urine Benzodiazepines Screen Neg (NEG) Urine Cocaine Screen Neg (NEG) Urine Cannabinoids Screen Neg (NEG) Urine Ethyl Alcohol Neg (NEG) White Blood Count 13.1x10^3/uL (4.0-11.0) Red Blood Count 4.39x10^6/uL (3.50-5.40) Hemoglobin 10.3g/dL (12.0-15.5) Hematocrit 32.8% (36.0-47.0) Mean Corpuscular Volume 75fL (79-100) Mean Corpuscular Hemoglobin 23pg (25-35) Mean Corpuscular Hemoglobin Concent 31g/dL (31-37) Red Cell Distribution Width 15.5% (11.5-14.5) Platelet Count 295x10^3/uL (140-400) Neutrophils (%) (Auto) 81% (31-73) Lymphocytes (%) (Auto) 12% (24-48) Monocytes (%) (Auto) 5% (0-9) Eosinophils (%) (Auto) 1% (0-3) Basophils (%) (Auto) 2% (0-3) Neutrophils # (Auto) 10.6x10^3uL (1.8-7.7) Lymphocytes # (Auto) 1.6x10^3/uL (1.0-4.8) Monocytes # (Auto) 0.6x10^3/uL (0.0-1.1) Eosinophils # (Auto) 0.1x10^3/uL (0.0-0.7) Basophils # (Auto) 0.2x10^3/uL (0.0-0.2) Sodium Level 129mmol/L (136-145) Potassium Level 4.7mmol/L (3.5-5.1) Chloride Level 92mmol/L (98-107) Carbon Dioxide Level 30mmol/L (21-32) Anion Gap 7 (6-14) Blood Urea Nitrogen 45mg/dL (7-20) Creatinine 2.4mg/dL (0.6-1.0) Estimated GFR (Cockcroft-Gault) 26.2 BUN/Creatinine Ratio 19 (6-20) Glucose Level 468mg/dL (70-99) Calcium Level 9.4mg/dL (8.5-10.1) Total Bilirubin 0.4mg/dL (0.2-1.0) Aspartate Amino Transf (AST/SGOT) 29U/L (15-37) Alanine Aminotransferase (ALT/SGPT) 39U/L (14-59) Alkaline Phosphatase 260U/L (46-116) Total Protein 8.9g/dL (6.4-8.2) Albumin 2.8g/dL (3.4-5.0) Albumin/Globulin Ratio 0.5 (1.0-1.7) Lipase 58U/L (73-393) Glucose (Fingerstick) 485mg/dL (70-99) Laboratory Tests Test 11/21/16 04:10 11/21/16 04:22 11/21/16 06:56 Urine Collection Type Unknown Urine Color Yellow Urine Clarity Turbid Urine pH 6.0 Urine Specific [place] 1.010 Urine Protein 30mg/dL (NEG-TRACE) Urine Glucose (UA) 500mg/dL (NEG) Urine Ketones (Stick) Negativemg/dL (NEG) Urine Blood Moderate (NEG) Urine Nitrite Negative (NEG) Urine Bilirubin Negative (NEG) Urine Urobilinogen Dipstick 0.2mg/dL (0.2 mg/dL) Urine Leukocyte Esterase Large (NEG) Urine RBC Occ/HPF (0-2) Urine WBC Tntc/HPF (0-4) Urine Squamous Epithelial Cells Occ/LPF Urine Bacteria Few/HPF (0-FEW) Urine Yeast Present/HPF Urine Opiates Screen Pos (NEG) Urine Methadone Screen Neg (NEG) Urine Barbiturates Neg (NEG) Urine Phencyclidine Screen Neg (NEG) Urine Amphetamine/Methamphetamine Neg (NEG) Urine Benzodiazepines Screen Neg (NEG) Urine Cocaine Screen Neg (NEG) Urine Cannabinoids Screen Neg (NEG) Urine Ethyl Alcohol Neg (NEG) White Blood Count 13.1x10^3/uL (4.0-11.0) Red Blood Count 4.39x10^6/uL (3.50-5.40) Hemoglobin 10.3g/dL (12.0-15.5) Hematocrit 32.8% (36.0-47.0) Mean Corpuscular Volume 75fL (79-100) Mean Corpuscular Hemoglobin 23pg (25-35) Mean Corpuscular Hemoglobin Concent 31g/dL (31-37) Red Cell Distribution Width 15.5% (11.5-14.5) Platelet Count 295x10^3/uL (140-400) Neutrophils (%) (Auto) 81% (31-73) Lymphocytes (%) (Auto) 12% (24-48) Monocytes (%) (Auto) 5% (0-9) Eosinophils (%) (Auto) 1% (0-3) Basophils (%) (Auto) 2% (0-3) Neutrophils # (Auto) 10.6x10^3uL (1.8-7.7) Lymphocytes # (Auto) 1.6x10^3/uL (1.0-4.8) Monocytes # (Auto) 0.6x10^3/uL (0.0-1.1) Eosinophils # (Auto) 0.1x10^3/uL (0.0-0.7) Basophils # (Auto) 0.2x10^3/uL (0.0-0.2) Sodium Level 129mmol/L (136-145) Potassium Level 4.7mmol/L (3.5-5.1) Chloride Level 92mmol/L (98-107) Carbon Dioxide Level 30mmol/L (21-32) Anion Gap 7 (6-14) Blood Urea Nitrogen 45mg/dL (7-20) Creatinine 2.4mg/dL (0.6-1.0) Estimated GFR (Cockcroft-Gault) 26.2 BUN/Creatinine Ratio 19 (6-20) Glucose Level 468mg/dL (70-99) Calcium Level 9.4mg/dL (8.5-10.1) Total Bilirubin 0.4mg/dL (0.2-1.0) Aspartate Amino Transf (AST/SGOT) 29U/L (15-37) Alanine Aminotransferase (ALT/SGPT) 39U/L (14-59) Alkaline Phosphatase 260U/L (46-116) Total Protein 8.9g/dL (6.4-8.2) Albumin 2.8g/dL (3.4-5.0) Albumin/Globulin Ratio 0.5 (1.0-1.7) Lipase 58U/L (73-393) Glucose (Fingerstick) 485mg/dL (70-99) VTE Prophylaxis Ordered VTE Prophylaxis Devices: Yes VTE Pharmacological Prophylaxi: No ALEXUS BURDEN MD Nov 21, 2016 09:34
[2016-11-21] MEDS ORDERED: PHENAZOPYRIDINE 200 MG TABLET. PO PRN (09:45)
[2016-11-21] MEDS ORDERED: OXYCODONE/APAP 7.5/325 TABLET. PO PRN (09:45)
[2016-11-21] MEDS: FLUCONAZOLE 100 MG TABLET. PO SCH (10:03)
[2016-11-21] MEDS: PROCHLORPERAZINE 5 MG TABLET. PO SCH ×2 (10:03→21:51)
[2016-11-21] MEDS: CEFTRIAXONE SODIUM 1 GM in IV NORMAL SALINE 50ML 50 ML IV SCH (10:04)
[2016-11-21 11:02] VITALS: BP 102/71
[2016-11-21] MEDS: INSULIN ASPART 300 UNITS/3 ML INSULN.PEN SQ SCH ×4 (13:01→18:27)
[2016-11-21] MEDS ORDERED: ALPRAZOLAM 0.25 MG TABLET PO ONE (14:45)
[2016-11-21 15:10] VITALS: BP 123/89
[2016-11-21 19:45] VITALS: BP 97/69
[2016-11-21] MEDS: INSULIN DETEMIR 300 UNITS/3 ML INSULN.PEN. SQ SCH (21:00)
--- NOTE | 2016-11-21 22:20 | HP ---
ADMIT DATE: 11/21/2016 CHIEF COMPLAINT: Nausea, vomiting and diarrhea. HISTORY OF PRESENT ILLNESS: This is a 46-year-old -[place] female patient with several comorbid conditions such as type 1 diabetes, chronic diastolic heart failure, hypertension, presented to the ER with complaints of nausea, vomiting and diarrhea and abdominal discomfort. The patient had several admissions to the hospital for urinary tract infections and also she left few times against medical advice. Essentially, the patient had bilateral renal stents. From that point, she has been getting infected multiple times and admitted to the hospital; however, she states she followed with urologist at on 10/30. However, her kidney stents were not removed. The patient presented to the ER with complaints of hyperglycemia, nausea, vomiting and acute abdominal pain. At the time of my examination, the patient appears to be stable; however, her blood sugars were more than 400 and she was nauseous and even showed some funguria. The patient did not have a family doctor and also she has a component of noncompliance. PAST MEDICAL HISTORY: Please see my electronic H and P. REVIEW OF SYSTEMS: Please see my electronic H and P. PHYSICAL EXAMINATION: Please see my electronic H and P. LABORATORY FINDINGS: Blood sugar is 468, sodium 129, potassium 4.7, chloride is 92, anion gap is 7, BUN is 45, creatinine 2.4, protein is 8.9, lipase is 58. Hematology: Hemoglobin is 10.3, MCV is 75, platelets 295, neutrophils 81%. Toxicology: Negative except opioid screen positive. Urine: Protein 30, glucose 500, ketones negative, nitrites negative, bilirubin negative, leukocyte esterase large, yeast present. IMAGING STUDIES: Acute abdominal series: Bilateral ureteral stents, unchanged ____, left intrarenal calculus. ASSESSMENT: 1. Type 1 diabetes mellitus with hyperglycemia. 2. Urinary tract infection, funguria. 3. Bilateral renal stents. 4. Chronic diastolic heart failure. 5. Anemia. 6. Possible ILENE and CKD. PLAN: 1. She has been admitted for antibiotics. I will give her IV Rocephin and oral fluconazole. 2. Sliding scale insulin with IV hydration. Urology has been consulted, Dr. Blue. 3. We will resume her home medications, Levemir and sliding scale insulin. flavor room worker has been consulted. The patient did not have a family doctor. 4. She says she went to urologist at , but they did not remove her stents and the next step ____ watched. 5. Monitor labs, CBC, BMP and renal functions in a.m. 6. Overall prognosis guarded. ALEXUS BURDEN MD DR: BJ/mariusz JOB#: [id number] / [id number] DIANN
[2016-11-21 23:30] VITALS: BP 91/67
[2016-11-22] MEDS: DEXTROSE 50% 25 GM / 50ML DISP.SYRIN. IV PRN ×2 (02:30→05:29)
[2016-11-22] MEDS: MORPHINE SULFATE 2 MG/ML DISP.SYRIN. IV PRN ×4 (03:19→22:00)
[2016-11-22 03:48] VITALS: BP 140/98
[2016-11-22] MEDS: IV NORMAL SALINE 1000ML BAG 1,000 ML IV SCH (06:25)
[2016-11-22 07:20] VITALS: BP 139/95
[2016-11-22] MEDS: INSULIN ASPART 300 UNITS/3 ML INSULN.PEN SQ SCH ×6 (08:00→17:00)
[2016-11-22] MEDS: CEFTRIAXONE SODIUM 1 GM in IV NORMAL SALINE 50ML 50 ML IV SCH (08:40)
[2016-11-22] MEDS: FLUCONAZOLE 100 MG TABLET. PO SCH (08:40)
[2016-11-22] MEDS: PROCHLORPERAZINE 5 MG TABLET. PO SCH ×2 (08:40→21:18)
[2016-11-22] MEDS: HYDROCODONE/APAP 5/325MG TABLET. PO PRN ×2 (09:44→21:18)
--- NOTE | 2016-11-22 09:57 | PDOC ---
PROGRESS NOTES Chief Complaint Chief Complaint 1. Type 1 diabetes mellitus with hyperglycemia and Hypoglycemia 2. Urinary tract infection, funguria. 3. Bilateral ureter stents. 4. Chronic diastolic heart failure. 5. Anemia. 6. Possible ILENE and CKD. Plan IV rocephine and fluconazole Dr Mirza ramirezatoben noted, Ms Doty asked to see urologist at Hold insulin If BS < 200, IV Hydration labs reviwed prognosis guarded. History of Present Illness History of Present Illness no fever no chillls. Vitals Vitals Vital Signs Date Time Temp Pulse Resp B/P Pulse Ox O2 Delivery O2 Flow Rate FiO2 11/22/16 09:44 100 Room Air 1.0 11/22/16 07:20 97.5 86 18 139/95 97.5 Physical Exam General: Alert, Oriented X3 Heart: Normal S1, Normal S2 Lungs: Clear Abdomen: Normal bowel sounds, Soft Labs LABS Laboratory Tests Test 11/21/16 10:56 11/21/16 15:12 11/21/16 17:10 11/21/16 20:01 Glucose (Fingerstick) 202mg/dL (70-99) 68mg/dL (70-99) 221mg/dL (70-99) 203mg/dL (70-99) Test 11/22/16 00:01 11/22/16 02:22 11/22/16 02:35 11/22/16 05:25 Glucose (Fingerstick) 87mg/dL (70-99) 37mg/dL (70-99) 197mg/dL (70-99) 24mg/dL (70-99) Test 11/22/16 05:36 11/22/16 07:54 Glucose (Fingerstick) 196mg/dL (70-99) 82mg/dL (70-99) Assessment and Plan Assessmemt and Plan Problems Medical Problems: (1) Hyperglycemia Status: Acute (2) Nausea, vomiting and diarrhea Status: Acute (3) Noncompliance w/medication treatment due to intermit use ofmedication Status: Acute (4) Pyelonephritis Status: Acute Problems: Comment Review of Relevant I have reviewed the following items calin (where applicable) has been applied. Labs Laboratory Tests Test 11/21/16 04:10 11/21/16 04:22 11/21/16 04:36 11/21/16 06:03 Urine Collection Type Unknown Urine Color Yellow Urine Clarity Turbid Urine pH 6.0 Urine Specific [place] 1.010 Urine Protein 30mg/dL (NEG-TRACE) Urine Glucose (UA) 500mg/dL (NEG) Urine Ketones (Stick) Negativemg/dL (NEG) Urine Blood Moderate (NEG) Urine Nitrite Negative (NEG) Urine Bilirubin Negative (NEG) Urine Urobilinogen Dipstick 0.2mg/dL (0.2 mg/dL) Urine Leukocyte Esterase Large (NEG) Urine RBC Occ/HPF (0-2) Urine WBC Tntc/HPF (0-4) Urine Squamous Epithelial Cells Occ/LPF Urine Bacteria Few/HPF (0-FEW) Urine Yeast Present/HPF Urine Opiates Screen Pos (NEG) Urine Methadone Screen Neg (NEG) Urine Barbiturates Neg (NEG) Urine Phencyclidine Screen Neg (NEG) Urine Amphetamine/Methamphetamine Neg (NEG) Urine Benzodiazepines Screen Neg (NEG) Urine Cocaine Screen Neg (NEG) Urine Cannabinoids Screen Neg (NEG) Urine Ethyl Alcohol Neg (NEG) White Blood Count 13.1x10^3/uL (4.0-11.0) Red Blood Count 4.39x10^6/uL (3.50-5.40) Hemoglobin 10.3g/dL (12.0-15.5) Hematocrit 32.8% (36.0-47.0) Mean Corpuscular Volume 75fL (79-100) Mean Corpuscular Hemoglobin 23pg (25-35) Mean Corpuscular Hemoglobin Concent 31g/dL (31-37) Red Cell Distribution Width 15.5% (11.5-14.5) Platelet Count 295x10^3/uL (140-400) Neutrophils (%) (Auto) 81% (31-73) Lymphocytes (%) (Auto) 12% (24-48) Monocytes (%) (Auto) 5% (0-9) Eosinophils (%) (Auto) 1% (0-3) Basophils (%) (Auto) 2% (0-3) Neutrophils # (Auto) 10.6x10^3uL (1.8-7.7) Lymphocytes # (Auto) 1.6x10^3/uL (1.0-4.8) Monocytes # (Auto) 0.6x10^3/uL (0.0-1.1) Eosinophils # (Auto) 0.1x10^3/uL (0.0-0.7) Basophils # (Auto) 0.2x10^3/uL (0.0-0.2) Sodium Level 129mmol/L (136-145) Potassium Level 4.7mmol/L (3.5-5.1) Chloride Level 92mmol/L (98-107) Carbon Dioxide Level 30mmol/L (21-32) Anion Gap 7 (6-14) Blood Urea Nitrogen 45mg/dL (7-20) Creatinine 2.4mg/dL (0.6-1.0) Estimated GFR (Cockcroft-Gault) 26.2 BUN/Creatinine Ratio 19 (6-20) Glucose Level 468mg/dL (70-99) Calcium Level 9.4mg/dL (8.5-10.1) Total Bilirubin 0.4mg/dL (0.2-1.0) Aspartate Amino Transf (AST/SGOT) 29U/L (15-37) Alanine Aminotransferase (ALT/SGPT) 39U/L (14-59) Alkaline Phosphatase 260U/L (46-116) Total Protein 8.9g/dL (6.4-8.2) Albumin 2.8g/dL (3.4-5.0) Albumin/Globulin Ratio 0.5 (1.0-1.7) Lipase 58U/L (73-393) Glucose (Fingerstick) 458mg/dL (70-99) 446mg/dL (70-99) Test 11/21/16 06:56 11/21/16 10:56 11/21/16 15:12 11/21/16 17:10 Glucose (Fingerstick) 485mg/dL (70-99) 202mg/dL (70-99) 68mg/dL (70-99) 221mg/dL (70-99) Test 11/21/16 20:01 11/22/16 00:01 11/22/16 02:22 11/22/16 02:35 Glucose (Fingerstick) 203mg/dL (70-99) 87mg/dL (70-99) 37mg/dL (70-99) 197mg/dL (70-99) Test 11/22/16 05:25 11/22/16 05:36 11/22/16 07:54 Glucose (Fingerstick) 24mg/dL (70-99) 196mg/dL (70-99) 82mg/dL (70-99) Laboratory Tests Test 11/21/16 10:56 11/21/16 15:12 11/21/16 17:10 11/21/16 20:01 Glucose (Fingerstick) 202mg/dL (70-99) 68mg/dL (70-99) 221mg/dL (70-99) 203mg/dL (70-99) Test 11/22/16 00:01 11/22/16 02:22 11/22/16 02:35 11/22/16 05:25 Glucose (Fingerstick) 87mg/dL (70-99) 37mg/dL (70-99) 197mg/dL (70-99) 24mg/dL (70-99) Test 11/22/16 05:36 11/22/16 07:54 Glucose (Fingerstick) 196mg/dL (70-99) 82mg/dL (70-99) Medications Current Medications Sodium Chloride (Iv Sodium Chloride 0.9% 1000ml Bag) 1,000 ml @ 1,000 mls/hr Q1H IV Last administered on 11/21/16 04:47; Start 11/21/16 at 04:45; Stop at 05:44; Status DC Ondansetron HCl 4 mg 4 mg 1X ONCE IV Last administered on 11/21/16 04:46; Start 11/21/16 at 04:45; Stop 11/21/16 at 04:46; Status DC Sodium Chloride (Iv Sodium Chloride 0.9% 1000ml Bag) 1,000 ml @ 1,000 mls/hr 1X ONCE IV Last administered on 11/21/16 07:28; Start 11/21/16 at 05:30; Stop 11/21/16 at 06:29; Status DC Insulin Aspart (Novolog) 0-7 UNITS TIDWMEALS SQ ; Start 11/21/16 at 08:00; Stop 11/21/16 at 09:33; Status DC Dextrose 12.5 gm PRN Q15MIN PRN IV SEE COMMENTS; Start 11/21/16 at 05:30; Status Cancel Ondansetron HCl (Zofran) 4 mg 1X ONCE IV Last administered on 11/21/16 05:38 ; Start 11/21/16 at 05:45; Stop 11/21/16 at 05:46; Status DC Ondansetron HCl 4 mg 4 mg PRN Q8HRS PRN IV NAUSEA/VOMITING Last administered on 11/21/16 07:21; Start 11/21/16 at 06:30; Stop 11/21/16 at 07:57; Status DC Sodium Chloride (Iv Sodium Chloride 0.9% 1000ml Bag) 1,000 ml @ 100 mls/hr Q10H IV Last administered on 11/22/16 06:25; Start 11/21/16 at 06:30; Stop at 06:29; Status DC Acetaminophen (Tylenol) 650 mg PRN Q4HRS PRN PO FEVER; Start 11/21/16 at 06:30 ; Stop 11/22/16 at 06:29; Status DC Ondansetron HCl (Zofran) 4 mg PRN Q6HRS PRN IV NAUSEA/VOMITING; Start 11/21/16 at 07:52 Morphine Sulfate 2 mg PRN Q2HR PRN IV PAIN Last administered on 11/22/16 03:19 ; Start 11/21/16 at 08:00 Insulin Aspart (Novolog) 15 units 1X ONCE SQ Last administered on 11/21/16 08 :45; Start 11/21/16 at 08:45; Stop 11/21/16 at 08:46; Status DC Fluconazole (Diflucan) 100 mg DAILY PO Last administered on 11/22/16 08:40; Start 11/21/16 at 10:00 Insulin Aspart (Novolog) 0-9 UNITS TIDWMEALS SQ Last administered on 11/21/16 18:26; Start 11/21/16 at 12:00 Dextrose 12.5 gm 12.5 gm PRN Q15MIN PRN IV SEE COMMENTS Last administered on 05:29; Start 11/21/16 at 09:30 Ceftriaxone Sodium/Sodium Chloride (Rocephin/Iv Sodium Chloride 0.9% 50ml) 50 ml @ 100 mls/hr Q24H IV Last administered on 11/22/16 08:40; Start 11/21/16 at 10:00 Acetaminophen/ Hydrocodone Bitart (Lortab 5/325) 1 tab PRN Q6HRS PRN PO PAIN Last administered on 11/22/16 09:44; Start 11/21/16 at 09:45 Insulin Detemir (Levemir) 45 units QHS SQ Last administered on 11/21/16 21:00 ; Start 11/21/16 at 21:00 Oxycodone/ Acetaminophen (Percocet 7.5/ 325) 1 tab PRN Q6HRS PRN PO PAIN; Start 11/21/16 at 09:45 Phenazopyridine HCl (Pyridium) 200 mg PRN Q8HRS PRN PO DYSURIA; Start 11/21/16 at 09:45 Insulin Aspart (Novolog) 7 units TIDWMEALS SQ Last administered on 11/21/16 18 :27; Start 11/21/16 at 12:00 Prochlorperazine Maleate (Compazine) 10 mg BID PO Last administered on 08:40; Start 11/21/16 at 10:00 Alprazolam (Xanax) 0.25 mg 1X ONCE PO Last administered on 11/21/16 14:53; Start 11/21/16 at 14:45; Stop 11/21/16 at 14:49; Status DC Active Scripts Active Pyridium (Phenazopyridine Hcl) 200 Mg Tablet 200 Mg PO Q8HRS PRN [place] 5-325 Tablet (Acetaminophen/Hydrocodone Bitart) 1 Each Tablet 1 Tab PO PRN Q6HRS PRN Levemir Flextouch (Insulin Detemir) 100 Unit/1 Ml Insuln.pen 45 Units SQ QHS Furosemide 40 Mg Tablet 40 Mg PO DAILY Prochlorperazine Maleate 10 Mg Tablet 10 Mg PO BID Humalog (Insulin Lispro) 100 Unit/1 Ml Cartridge 7 Unit SQ TIDAC 30 Days Klor-Con M10 (Potassium Chloride) 10 Meq Tab.er.prt 10 Meq PO DAILYWBKFT Percocet 7.5-325 Mg Tablet (Oxycodone/Acetaminophen) 1 Each Tablet 1 Tab PO PRN Q6HRS PRN Vitals/I & O Vital Sign - Last 24 Hours 11/21/16 11/21/16 11/21/16 11/21/16 11:02 13:28 15:10 18:23 Temp 97.6 97.8 97.6 97.8 Pulse 80 83 Resp 17 B/P 102/71 123/89 Pulse Ox 99 99 99 O2 Delivery Room Air Nasal Cannula Room Air Nasal Cannula O2 Flow Rate 1.0 1.0 11/21/16 11/21/16 11/21/16 11/21/16 19:45 20:00 22:10 23:30 Temp 98.6 99.1 98.6 99.1 Pulse 86 87 Resp 16 14 20 B/P 97/69 91/67 Pulse Ox 98 98 O2 Delivery Room Air Room Air Room Air Room Air 11/22/16 11/22/16 11/22/16 11/22/16 03:19 03:45 03:48 07:20 Temp 98.3 97.5 98.3 97.5 Pulse 91 86 Resp 14 14 20 18 B/P 140/98 139/95 Pulse Ox 100 100 O2 Delivery Room Air Room Air Room Air Room Air 11/22/16 09:44 Pulse Ox 100 O2 Delivery Room Air O2 Flow Rate 1.0 Intake and Output 11/21/16 11/21/16 11/22/16 15:00 23:00 07:00 Intake Total 900 ml 1250 ml 1880 ml Balance 900 ml 1250 ml 1880 ml ALEXUS BURDEN MD Nov 22, 2016 09:57
[2016-11-22] MEDS ORDERED: FLUTICASONE 50MCG/NASAL SPRAY 16GM BOTTLE. NS PRN (10:15)
[2016-11-22 11:08] VITALS: BP 161/105
[2016-11-22] MEDS ORDERED: ALPRAZOLAM 0.25 MG TABLET PO ONE (11:30)
--- NOTE | 2016-11-22 11:35 | PDOC ---
Provider Note Provider Note UROLOGY: c/c Recurrent UTI's Patient well known to Urology Service, has been seen be 3 Urologist at [facility]. She is extremely non-compliant, does not take medications as instructed, does not keep appointments set up for her at Urology, as directed by Dr. Schuler for additional work-up. Impression: Recurrent UTI's Non-Compliant patient Renal insufficiency Status Post bilateral ureteral stents by Dr Schuler Suggest: Treat UTI according to C&S urine Follow up with urology per previous instructions by Dr. Schuler Thank-you, FRITZ RIVAS DO Nov 22, 2016 11:35
[2016-11-22 12:02] LABS: BASO % 0 % (0-3); EOS % 1 % (0-3); HEMATOCRIT 28.4 % (36.0-47.0); LYMPH # 1.9 x10^3/uL (1.0-4.8); LYMPH % 14 % (24-48); MEAN CORPUSCULAR HEMOGLOBIN 24 pg (25-35); MEAN CORPUSCULAR HGB CONC 32 g/dL (31-37); MEAN CORPUSCULAR VOLUME 74 fL (79-100); MONO % 9 % (0-9); NEUT % 76 % (31-73); PLATELET COUNT 263 x10^3/uL (140-400); RED BLOOD COUNT 3.84 x10^6/uL (3.50-5.40); RED CELL DISTRIBUTION WIDTH 15.7 % (11.5-14.5); WHITE BLOOD COUNT 13.6 x10^3/uL (4.0-11.0)
[2016-11-22 12:16] LABS: CALCIUM 8.1 mg/dL (8.5-10.1); CREATININE 2.3 mg/dL (0.6-1.0); GFR 27.5
[2016-11-22 12:17] LABS: POTASSIUM 5.4 mmol/L (3.5-5.1)
[2016-11-22 15:05] VITALS: BP 162/97
[2016-11-22 19:00] VITALS: BP 141/95
[2016-11-22] MEDS: INSULIN DETEMIR 300 UNITS/3 ML INSULN.PEN. SQ SCH (21:39)
[2016-11-22 23:00] VITALS: BP 154/106
[2016-11-22] MEDS ORDERED: ALPRAZOLAM 0.25 MG TABLET PO PRN (23:00)
[2016-11-23 03:00] VITALS: BP 170/112
[2016-11-23] MEDS: LABETALOL 20 MG/4 ML DISP.SYRIN. IVP PRN ×2 (04:13→11:14)
[2016-11-23] MEDS: MORPHINE SULFATE 2 MG/ML DISP.SYRIN. IV PRN ×2 (04:15→11:22)
[2016-11-23 07:30] VITALS: BP 112/77
[2016-11-23] MEDS: FLUCONAZOLE 100 MG TABLET. PO SCH (08:52)
[2016-11-23] MEDS: PROCHLORPERAZINE 5 MG TABLET. PO SCH (08:52)
[2016-11-23] MEDS: INSULIN ASPART 300 UNITS/3 ML INSULN.PEN SQ SCH ×4 (08:55→11:21)
--- NOTE | 2016-11-23 09:20 | PDOC ---
PROGRESS NOTES Chief Complaint Chief Complaint 1. Type 1 diabetes mellitus with hyperglycemia and Hypoglycemia 2. Urinary tract infection, funguria. 3. Bilateral ureter stents. 4. Chronic diastolic heart failure. 5. Anemia. 6. Possible ILENE and CKD. Plan IV Rocephin and fluconazole Dr Blue recommendatoben noted, Ms Doty asked to see urologist at Hold insulin If BS < 200, IV Hydration labs reviwed prognosis guarded. out pt follow up with Labs pending Pt wants to go home. History of Present Illness History of Present Illness no fever no chillls. Vitals Vitals Vital Signs Date Time Temp Pulse Resp B/P Pulse Ox O2 Delivery O2 Flow Rate FiO2 11/23/16 07:30 97.7 77 18 112/77 94 Room Air 97.7 11/22/16 17:19 1.0 Physical Exam General: Alert, Oriented X3 Heart: Normal S1, Normal S2 Lungs: Clear Abdomen: Normal bowel sounds, Soft Labs LABS Laboratory Tests Test 11/22/16 11:03 11/22/16 11:45 11/22/16 16:55 11/22/16 20:02 Glucose (Fingerstick) 105mg/dL (70-99) 123mg/dL (70-99) 161mg/dL (70-99) White Blood Count 13.6x10^3/uL (4.0-11.0) Red Blood Count 3.84x10^6/uL (3.50-5.40) Hemoglobin 9.0g/dL (12.0-15.5) Hematocrit 28.4% (36.0-47.0) Mean Corpuscular Volume 74fL (79-100) Mean Corpuscular Hemoglobin 24pg (25-35) Mean Corpuscular Hemoglobin Concent 32g/dL (31-37) Red Cell Distribution Width 15.7% (11.5-14.5) Platelet Count 263x10^3/uL (140-400) Neutrophils (%) (Auto) 76% (31-73) Lymphocytes (%) (Auto) 14% (24-48) Monocytes (%) (Auto) 9% (0-9) Eosinophils (%) (Auto) 1% (0-3) Basophils (%) (Auto) 0% (0-3) Neutrophils # (Auto) 10.4x10^3uL (1.8-7.7) Lymphocytes # (Auto) 1.9x10^3/uL (1.0-4.8) Monocytes # (Auto) 1.2x10^3/uL (0.0-1.1) Eosinophils # (Auto) 0.1x10^3/uL (0.0-0.7) Basophils # (Auto) 0.0x10^3/uL (0.0-0.2) Sodium Level 137mmol/L (136-145) Potassium Level 5.4mmol/L (3.5-5.1) Chloride Level 104mmol/L (98-107) Carbon Dioxide Level 27mmol/L (21-32) Anion Gap 6 (6-14) Blood Urea Nitrogen 34mg/dL (7-20) Creatinine 2.3mg/dL (0.6-1.0) Estimated GFR (Cockcroft-Gault) 27.5 Glucose Level 159mg/dL (70-99) Calcium Level 8.1mg/dL (8.5-10.1) Test 11/22/16 23:56 11/23/16 03:40 11/23/16 07:52 Glucose (Fingerstick) 192mg/dL (70-99) 172mg/dL (70-99) 223mg/dL (70-99) Assessment and Plan Assessmemt and Plan Problems Medical Problems: (1) Hyperglycemia Status: Acute (2) Nausea, vomiting and diarrhea Status: Acute (3) Noncompliance w/medication treatment due to intermit use ofmedication Status: Acute (4) Pyelonephritis Status: Acute Problems: Comment Review of Relevant I have reviewed the following items calin (where applicable) has been applied. Labs Laboratory Tests Test 11/21/16 10:56 11/21/16 15:12 11/21/16 17:10 11/21/16 20:01 Glucose (Fingerstick) 202mg/dL (70-99) 68mg/dL (70-99) 221mg/dL (70-99) 203mg/dL (70-99) Test 11/22/16 00:01 11/22/16 02:22 11/22/16 02:35 11/22/16 05:25 Glucose (Fingerstick) 87mg/dL (70-99) 37mg/dL (70-99) 197mg/dL (70-99) 24mg/dL (70-99) Test 11/22/16 05:36 11/22/16 07:54 11/22/16 11:03 11/22/16 11:45 Glucose (Fingerstick) 196mg/dL (70-99) 82mg/dL (70-99) 105mg/dL (70-99) White Blood Count 13.6x10^3/uL (4.0-11.0) Red Blood Count 3.84x10^6/uL (3.50-5.40) Hemoglobin 9.0g/dL (12.0-15.5) Hematocrit 28.4% (36.0-47.0) Mean Corpuscular Volume 74fL (79-100) Mean Corpuscular Hemoglobin 24pg (25-35) Mean Corpuscular Hemoglobin Concent 32g/dL (31-37) Red Cell Distribution Width 15.7% (11.5-14.5) Platelet Count 263x10^3/uL (140-400) Neutrophils (%) (Auto) 76% (31-73) Lymphocytes (%) (Auto) 14% (24-48) Monocytes (%) (Auto) 9% (0-9) Eosinophils (%) (Auto) 1% (0-3) Basophils (%) (Auto) 0% (0-3) Neutrophils # (Auto) 10.4x10^3uL (1.8-7.7) Lymphocytes # (Auto) 1.9x10^3/uL (1.0-4.8) Monocytes # (Auto) 1.2x10^3/uL (0.0-1.1) Eosinophils # (Auto) 0.1x10^3/uL (0.0-0.7) Basophils # (Auto) 0.0x10^3/uL (0.0-0.2) Sodium Level 137mmol/L (136-145) Potassium Level 5.4mmol/L (3.5-5.1) Chloride Level 104mmol/L (98-107) Carbon Dioxide Level 27mmol/L (21-32) Anion Gap 6 (6-14) Blood Urea Nitrogen 34mg/dL (7-20) Creatinine 2.3mg/dL (0.6-1.0) Estimated GFR (Cockcroft-Gault) 27.5 Glucose Level 159mg/dL (70-99) Calcium Level 8.1mg/dL (8.5-10.1) Test 11/22/16 16:55 11/22/16 20:02 11/22/16 23:56 11/23/16 03:40 Glucose (Fingerstick) 123mg/dL (70-99) 161mg/dL (70-99) 192mg/dL (70-99) 172mg/dL (70-99) Test 11/23/16 07:52 Glucose (Fingerstick) 223mg/dL (70-99) Laboratory Tests Test 11/22/16 11:03 11/22/16 11:45 11/22/16 16:55 11/22/16 20:02 Glucose (Fingerstick) 105mg/dL (70-99) 123mg/dL (70-99) 161mg/dL (70-99) White Blood Count 13.6x10^3/uL (4.0-11.0) Red Blood Count 3.84x10^6/uL (3.50-5.40) Hemoglobin 9.0g/dL (12.0-15.5) Hematocrit 28.4% (36.0-47.0) Mean Corpuscular Volume 74fL (79-100) Mean Corpuscular Hemoglobin 24pg (25-35) Mean Corpuscular Hemoglobin Concent 32g/dL (31-37) Red Cell Distribution Width 15.7% (11.5-14.5) Platelet Count 263x10^3/uL (140-400) Neutrophils (%) (Auto) 76% (31-73) Lymphocytes (%) (Auto) 14% (24-48) Monocytes (%) (Auto) 9% (0-9) Eosinophils (%) (Auto) 1% (0-3) Basophils (%) (Auto) 0% (0-3) Neutrophils # (Auto) 10.4x10^3uL (1.8-7.7) Lymphocytes # (Auto) 1.9x10^3/uL (1.0-4.8) Monocytes # (Auto) 1.2x10^3/uL (0.0-1.1) Eosinophils # (Auto) 0.1x10^3/uL (0.0-0.7) Basophils # (Auto) 0.0x10^3/uL (0.0-0.2) Sodium Level 137mmol/L (136-145) Potassium Level 5.4mmol/L (3.5-5.1) Chloride Level 104mmol/L (98-107) Carbon Dioxide Level 27mmol/L (21-32) Anion Gap 6 (6-14) Blood Urea Nitrogen 34mg/dL (7-20) Creatinine 2.3mg/dL (0.6-1.0) Estimated GFR (Cockcroft-Gault) 27.5 Glucose Level 159mg/dL (70-99) Calcium Level 8.1mg/dL (8.5-10.1) Test 11/22/16 23:56 11/23/16 03:40 11/23/16 07:52 Glucose (Fingerstick) 192mg/dL (70-99) 172mg/dL (70-99) 223mg/dL (70-99) Medications Current Medications Sodium Chloride (Iv Sodium Chloride 0.9% 1000ml Bag) 1,000 ml @ 1,000 mls/hr Q1H IV Last administered on 11/21/16 04:47; Start 11/21/16 at 04:45; Stop at 05:44; Status DC Ondansetron HCl 4 mg 4 mg 1X ONCE IV Last administered on 11/21/16 04:46; Start 11/21/16 at 04:45; Stop 11/21/16 at 04:46; Status DC Sodium Chloride (Iv Sodium Chloride 0.9% 1000ml Bag) 1,000 ml @ 1,000 mls/hr 1X ONCE IV Last administered on 11/21/16 07:28; Start 11/21/16 at 05:30; Stop 11/21/16 at 06:29; Status DC Insulin Aspart (Novolog) 0-7 UNITS TIDWMEALS SQ ; Start 11/21/16 at 08:00; Stop 11/21/16 at 09:33; Status DC Dextrose 12.5 gm PRN Q15MIN PRN IV SEE COMMENTS; Start 11/21/16 at 05:30; Status Cancel Ondansetron HCl (Zofran) 4 mg 1X ONCE IV Last administered on 11/21/16 05:38 ; Start 11/21/16 at 05:45; Stop 11/21/16 at 05:46; Status DC Ondansetron HCl 4 mg 4 mg PRN Q8HRS PRN IV NAUSEA/VOMITING Last administered on 11/21/16 07:21; Start 11/21/16 at 06:30; Stop 11/21/16 at 07:57; Status DC Sodium Chloride (Iv Sodium Chloride 0.9% 1000ml Bag) 1,000 ml @ 100 mls/hr Q10H IV Last administered on 11/22/16 06:25; Start 11/21/16 at 06:30; Stop at 06:29; Status DC Acetaminophen (Tylenol) 650 mg PRN Q4HRS PRN PO FEVER; Start 11/21/16 at 06:30 ; Stop 11/22/16 at 06:29; Status DC Ondansetron HCl (Zofran) 4 mg PRN Q6HRS PRN IV NAUSEA/VOMITING; Start 11/21/16 at 07:52 Morphine Sulfate 2 mg PRN Q2HR PRN IV PAIN Last administered on 11/22/16 22:00 ; Start 11/21/16 at 08:00 Insulin Aspart (Novolog) 15 units 1X ONCE SQ Last administered on 11/21/16 08 :45; Start 11/21/16 at 08:45; Stop 11/21/16 at 08:46; Status DC Fluconazole (Diflucan) 100 mg DAILY PO Last administered on 11/23/16 08:52; Start 11/21/16 at 10:00 Insulin Aspart (Novolog) 0-9 UNITS TIDWMEALS SQ Last administered on 11/23/16 08:55; Start 11/21/16 at 12:00 Dextrose 12.5 gm 12.5 gm PRN Q15MIN PRN IV SEE COMMENTS Last administered on 05:29; Start 11/21/16 at 09:30 Ceftriaxone Sodium/Sodium Chloride (Rocephin/Iv Sodium Chloride 0.9% 50ml) 50 ml @ 100 mls/hr Q24H IV Last administered on 11/22/16 08:40; Start 11/21/16 at 10:00 Acetaminophen/ Hydrocodone Bitart (Lortab 5/325) 1 tab PRN Q6HRS PRN PO PAIN Last administered on 11/22/16 09:44; Start 11/21/16 at 09:45 Insulin Detemir (Levemir) 45 units QHS SQ Last administered on 11/21/16 21:00 ; Start 11/21/16 at 21:00 Oxycodone/ Acetaminophen (Percocet 7.5/ 325) 1 tab PRN Q6HRS PRN PO PAIN; Start 11/21/16 at 09:45 Phenazopyridine HCl (Pyridium) 200 mg PRN Q8HRS PRN PO DYSURIA; Start 11/21/16 at 09:45 Insulin Aspart (Novolog) 7 units TIDWMEALS SQ Last administered on 11/23/16 08 :55; Start 11/21/16 at 12:00 Prochlorperazine Maleate (Compazine) 10 mg BID PO Last administered on 08:52; Start 11/21/16 at 10:00 Alprazolam (Xanax) 0.25 mg 1X ONCE PO Last administered on 11/21/16 14:53; Start 11/21/16 at 14:45; Stop 11/21/16 at 14:49; Status DC Fluticasone Propionate (Flonase) 2 spray PRN DAILY PRN NS ALLERGIES Last administered on 11/22/16 17:23; Start 11/22/16 at 10:15 Alprazolam (Xanax) 0.25 mg 1X ONCE PO Last administered on 11/22/16 11:18; Start 11/22/16 at 11:30; Stop 11/22/16 at 11:31; Status DC Alprazolam (Xanax) 0.25 mg PRN Q6HRS PRN PO ANXIETY / AGITATION; Start at 23:00 Labetalol HCl (Normodyne) 10 mg PRN Q2HR PRN IVP HYPERTENSION, SEE COMMENTS Last administered on 11/23/16 04:13; Start 11/23/16 at 04:00 Active Scripts Active Pyridium (Phenazopyridine Hcl) 200 Mg Tablet 200 Mg PO Q8HRS PRN [place] 5-325 Tablet (Acetaminophen/Hydrocodone Bitart) 1 Each Tablet 1 Tab PO PRN Q6HRS PRN Levemir Flextouch (Insulin Detemir) 100 Unit/1 Ml Insuln.pen 45 Units SQ QHS Furosemide 40 Mg Tablet 40 Mg PO DAILY Prochlorperazine Maleate 10 Mg Tablet 10 Mg PO BID Humalog (Insulin Lispro) 100 Unit/1 Ml Cartridge 7 Unit SQ TIDAC 30 Days Klor-Con M10 (Potassium Chloride) 10 Meq Tab.er.prt 10 Meq PO DAILYWBKFT Percocet 7.5-325 Mg Tablet (Oxycodone/Acetaminophen) 1 Each Tablet 1 Tab PO PRN Q6HRS PRN Vitals/I & O Vital Sign - Last 24 Hours 11/22/16 11/22/16 11/22/16 11/22/16 09:44 11:08 11:19 15:05 Temp 97.5 97.9 97.5 97.9 Pulse 95 104 Resp 18 18 B/P 161/105 162/97 Pulse Ox 100 99 99 99 O2 Delivery Room Air Room Air Room Air Room Air O2 Flow Rate 1.0 11/22/16 11/22/16 11/22/16 11/22/16 17:19 19:00 20:15 23:00 Temp 98.1 98.5 98.1 98.5 Pulse 101 101 Resp 16 18 B/P 141/95 154/106 Pulse Ox 99 98 99 O2 Delivery Room Air Room Air Room Air Room Air O2 Flow Rate 1.0 11/23/16 11/23/16 11/23/16 03:00 04:13 07:30 Temp 98.2 97.7 98.2 97.7 Pulse 103 103 77 Resp 16 18 B/P 170/112 170/112 112/77 Pulse Ox 96 94 O2 Delivery Room Air Room Air Intake and Output 11/22/16 11/22/16 11/23/16 15:00 23:00 07:00 Intake Total 50 ml 1400 ml 800 ml Balance 50 ml 1400 ml 800 ml ALEXUS BURDEN MD Nov 23, 2016 09:20
[2016-11-23] MEDS: CEFTRIAXONE SODIUM 1 GM in IV NORMAL SALINE 50ML 50 ML IV SCH (10:43)
[2016-11-23 11:05] VITALS: BP 164/105
[2016-11-23 11:14] VITALS: BP 164/105
[2016-11-23] MEDS ORDERED: FLUC100T7 PO (11:54)
--- NOTE | 2016-11-28 20:43 | DS ---
DATE OF DISCHARGE: 11/23/2016 DISCHARGE DIAGNOSES: 1. Type 2 diabetes mellitus with hyper and hypoglycemia. 2. Urinary tract infection, fungal. 3. Bilateral ureteral stents. 4. Chronic diastolic heart failure. 5. Anemia. 6. Possible ILENE and CKD. BRIEF HOSPITAL COURSE: A 46-year-old female patient admitted to the hospital for nausea, vomiting, diarrhea and abdominal discomfort. The patient had multiple admissions to the hospital and she was treated for hyperglycemia with IV insulin and also she was started on broad spectrum antibiotics. Urine showed some funguria, so she was started on fluconazole. Due to her complex nature of UTI and ureteral stents, we consulted Urology. As per Urology, patient is to follow up with [facility], however, the patient states she saw them on 10/30/2016 and they did not take any of her stents and they asked her to see them again in December. I educated the patient about the significance of following up with physicians for removal of ureteral stents, otherwise patient may end up in sepsis due to her urinary tract infection. The patient verbalized understanding of her condition and she will follow with them as soon as she has been discharged. DISCHARGE EXAMINATION: GENERAL: Alert, oriented x 3. HEART: S1, S2 present. LUNGS: Clear to auscultation. ABDOMEN: Soft, nontender, no organomegaly. EXTREMITIES: No edema. DISCHARGE DISPOSITION: Home. DISCHARGE CONDITION: Stable. MEDICATIONS: Reviewed and reconciled. Please see MRAD. Total time spent for discharge is 32 minutes for patient education, counseling and coordination of care and physical examination. ALEXUS BURDEN MD DR: [email or web address] JOB#: [id number] / [id number] DIANN
== END 2016-11-23 15:55 | disposition home or self-care (01) | DRG 637 ==
LOC: ER 04:05 → 6 SOUTH 05:26
PROVIDERS: ADMIT Internal Medicine; ATTEND Internal Medicine
DX: E10.65 Type 1 diabetes mellitus with hyperglycemia (principal); N17.0 Acute kidney failure with tubular necrosis; N12 Tubulo-interstitial nephritis, not specified as acute or chronic; I50.32 Chronic diastolic (congestive) heart failure; I13.0 Hypertensive heart and chronic kidney disease with heart failure and stage 1 through stage 4 chronic kidney disease, or unspecified chronic kidney disease; N17.9 Acute kidney failure, unspecified; D57.1 Sickle-cell disease without crisis; E78.5 Hyperlipidemia, unspecified; N18.9 Chronic kidney disease, unspecified; K21.9 Gastro-esophageal reflux disease without esophagitis; M79.7 Fibromyalgia; Z79.4 Long term (current) use of insulin; Z83.3 Family history of diabetes mellitus; Z87.440 Personal history of urinary (tract) infections; Z91.14 Patient's other noncompliance with medication regimen; Z91.19 Patient's noncompliance with other medical treatment and regimen
CPT/HCPCS: 36415; 74022; 80048; 80053; 81001; 81003; 82947; 83690; 85027; 87086; 93005; 96374; 96375; 96376; G0481; J0696; J1815; J2270; J2405; J3490; J7030; J7042; Q0164; 99285-25

== ENCOUNTER 2017-07-25 10:42 | Emergency (ER) | payer SELFPAY ==
[~2017-07-25 10:42] MED LIST changes: +DOCU-109 PO; -DOCU-27 PO; -LEVO500T38 PO; +LEVO500T59 PO; -OXYC-244 PO; +OXYC-327 PO
[2017-07-25] MEDS ORDERED: ONDANSETRON PF 4 MG/2 ML VIAL. IV ONE (11:30)
[2017-07-25] MEDS ORDERED: IV NORMAL SALINE 1000ML BAG 1,000 ML IV ONE ×2 (11:30→13:00)
--- NOTE | 2017-07-25 11:37 | PHYS DOC ---
Past Medical History Past Medical History: Anemia, CHF, Diabetes-Type I, Fibromyalgia, Hypertension , Sickle Cell Disease, Other Additional Past Medical Histor: Blood clot to R)leg, hypoalbuminemia, lower ext edema Past Surgical History: Cholecystectomy, Oophorectomy, Tubal ligation, Other Additional Past Surgical Histo: Drainage tube for gall bladder. , kidney stents x2, removal of left ovary Alcohol Use: None Drug Use: None Adult General Chief Complaint Chief Complaint: NAUSEA/VOMITING/DIARRHA HPI HPI Patient is a 47 year old female presents with complaints of nausea, nonbloody vomiting, nonbloody diarrhea and abdominal discomfort that has been ongoing off and on for 1-2 weeks. Patient is diabetic and has not been controlling her sugars regularly running between 200 and 300. Patient denies any sick contacts, fevers, chills, rashes, recent change in medication. Review of Systems Review of Systems Constitutional: Denies fever or chills [] Eyes: Denies change in visual acuity, redness, or eye pain [] HENT: Denies nasal congestion or sore throat [] Respiratory: Denies cough or shortness of breath [] Cardiovascular: No chest pain GI: Yes 2 nausea vomiting and diarrhea. Nonbloody. Abdominal discomfort : Denies dysuria or hematuria [] Musculoskeletal: Denies back pain or joint pain [] Integument: Denies rash or skin lesions [] Neurologic: Denies headache, focal weakness or sensory changes [] Current Medications Current Medications Current Medications Medications (Trade) Dose Ordered Sig/Therese Start Time Stop Time Status Last Admin Dose Admin Hyoscyamine (Anaspaz) 0.125 mg PRN Q4HRS PRN 07/25/17 13:15 07/25/17 14:06 0.125 MG Insulin Human Regular (NovoLIN R VIAL) 8 unit 1X ONCE 07/25/17 13:45 07/25/17 13:47 DC 07/25/17 14:09 8 UNIT Labetalol HCl (Normodyne) 20 mg 1X ONCE 07/25/17 14:00 07/25/17 14:01 DC 07/25/17 14:00 20 MG Ondansetron HCl (Zofran) 4 mg 1X ONCE 07/25/17 11:30 07/25/17 11:31 DC 07/25/17 11:54 4 MG Sodium Chloride 1,000 ml @ 1,000 mls/hr 1X ONCE 07/25/17 13:00 07/25/17 13:59 DC 07/25/17 13:00 1,000 MLS/HR Allergies Allergies Allergies Coded Allergies Type Severity Reaction Last Updated Verified No Known Medication Allergies Allergy Unknown 09/10/16 Yes Physical Exam Physical Exam Constitutional: Well developed, well nourished, no acute distress, non-toxic appearance. [] HENT: Normocephalic, atraumatic,, oropharynx dry, no oral exudates, nose normal. [] Eyes: EOMI, conjunctiva normal, no discharge. [] Neck: Normal range of motion, no tenderness, supple, no stridor. [] Cardiovascular:Heart rate regular rhythm, no murmur [] Lungs & Thorax: Bilateral breath sounds clear to auscultation, no tachypnea Abdomen: Bowel sounds normal, soft, mild and diffuse tenderness without guarding or rebound, no masses, no pulsatile masses. [] Skin: Warm, dry, no erythema, no rash. [] Back: No tenderness, no CVA tenderness. [] Extremities: No tenderness, no cyanosis, no DVT, ROM intact, no edema. [] Neurologic: Alert and oriented X 3, normal motor function, no focal deficits noted. [] Psychologic: Affect normal, judgement normal, mood normal. [] Current Patient Data Vital Signs Vital Signs Date Time Temp Pulse Resp B/P (MAP) Pulse Ox O2 Delivery O2 Flow Rate FiO2 07/25/17 14:13 89 146/103 (117) 07/25/17 13:22 100 07/25/17 11:35 97.7 16 Room Air 97.7 Lab Values Laboratory Tests Test 07/25/17 11:09 07/25/17 11:20 07/25/17 11:50 07/25/17 13:44 Urine Collection Type Void Urine Color Yellow Urine Clarity Turbid Urine pH 5.0 Urine Specific Siler 1.010 Urine Protein 100 mg/dL (NEG-TRACE) Urine Glucose (UA) >=1000 mg/dL (NEG) Urine Ketones (Stick) Negative mg/dL (NEG) Urine Blood Large (NEG) Urine Nitrite Negative (NEG) Urine Bilirubin Negative (NEG) Urine Urobilinogen Dipstick 0.2 mg/dL (0.2 mg/dL) Urine Leukocyte Esterase Large (NEG) Urine RBC 3-5 /HPF (0-2) Urine WBC Tntc /HPF (0-4) Urine Squamous Epithelial Cells Mod /LPF Urine Bacteria Many /HPF (0-FEW) Urine Yeast Present /HPF Urine Opiates Screen Neg (NEG) Urine Methadone Screen Neg (NEG) Urine Barbiturates Neg (NEG) Urine Phencyclidine Screen Neg (NEG) Urine Amphetamine/Methamphetamine Neg (NEG) Urine Benzodiazepines Screen Neg (NEG) Urine Cocaine Screen Neg (NEG) Urine Cannabinoids Screen Neg (NEG) Urine Ethyl Alcohol Pos (NEG) POC Urine HCG, Qualitative Hcg negative (Negative) White Blood Count 9.8 x10^3/uL (4.0-11.0) Red Blood Count 4.28 x10^6/uL (3.50-5.40) Hemoglobin 10.3 g/dL (12.0-15.5) L Hematocrit 32.6 % (36.0-47.0) L Mean Corpuscular Volume 76 fL (79-100) L Mean Corpuscular Hemoglobin 24 pg (25-35) L Mean Corpuscular Hemoglobin Concent 32 g/dL (31-37) Red Cell Distribution Width 13.5 % (11.5-14.5) Platelet Count 363 x10^3/uL (140-400) Neutrophils (%) (Auto) 77 % (31-73) H Lymphocytes (%) (Auto) 13 % (24-48) L Monocytes (%) (Auto) 9 % (0-9) Eosinophils (%) (Auto) 0 % (0-3) Basophils (%) (Auto) 0 % (0-3) Neutrophils # (Auto) 7.6 x10^3uL (1.8-7.7) Lymphocytes # (Auto) 1.3 x10^3/uL (1.0-4.8) Monocytes # (Auto) 0.9 x10^3/uL (0.0-1.1) Eosinophils # (Auto) 0.0 x10^3/uL (0.0-0.7) Basophils # (Auto) 0.0 x10^3/uL (0.0-0.2) Sodium Level 132 mmol/L (136-145) L Potassium Level 4.9 mmol/L (3.5-5.1) Chloride Level 98 mmol/L (98-107) Carbon Dioxide Level 24 mmol/L (21-32) Anion Gap 10 (6-14) Blood Urea Nitrogen 37 mg/dL (7-20) H Creatinine 2.8 mg/dL (0.6-1.0) H Estimated GFR (Cockcroft-Gault) 21.8 BUN/Creatinine Ratio 13 (6-20) Glucose Level 486 mg/dL (70-99) H Calcium Level 9.3 mg/dL (8.5-10.1) Total Bilirubin 0.2 mg/dL (0.2-1.0) Aspartate Amino Transferase (AST) 6 U/L (15-37) L Alanine Aminotransferase (ALT) 16 U/L (14-59) Alkaline Phosphatase 358 U/L (46-116) H Total Protein 9.5 g/dL (6.4-8.2) H Albumin 2.7 g/dL (3.4-5.0) L Albumin/Globulin Ratio 0.4 (1.0-1.7) L Glucose (Fingerstick) 405 mg/dL (70-99) H Test 07/25/17 14:51 Glucose (Fingerstick) 311 mg/dL (70-99) H Laboratory Tests 07/25/17 11:50 Laboratory Tests 07/25/17 11:50 EKG EKG [] Radiology/Procedures Radiology/Procedures [] Course & Med Decision Making Course & Med Decision Making Pertinent Labs and Imaging studies reviewed. (See chart for details) 1416 SBP 146, pt not vomiting, feels improved. 1457 HR 80, BS 336 We will contact to see if some assistance can be provided for access to medication. [] Dragon Disclaimer Dragon Disclaimer This electronic medical record was generated, in whole or in part, using a voice recognition dictation system. Departure Departure Impression: Primary Impression: Nausea, vomiting and diarrhea Additional Impressions: Hyperglycemia Dehydration Acute renal failure Disposition: 01 HOME, SELF-CARE Condition: IMPROVED Referrals: NO PCP (PCP) Please follow-up with your PCP for recheck and reevaluated. please have your renal function recheckeda and discuss your diabetes regimen. Please only consume an ADA approved diet. You may also follow up at one of the clinics in the list provided to you Patient Instructions: Dehydration, Adult, Diarrhea, [id number], Hyperglycemia , Nausea and Vomiting Scripts Loperamide HCl (Imodium A-D) 2 Mg Capsule 2 MG PO TID for 3 Days, #9 CAP Prov: Bal KOEHLER MD 07/25/17 Ondansetron (ONDANSETRON ODT) 4 Mg Tab.rapdis 1 TAB PO TID, #16 TAB Prov: Bal KOEHLER MD 07/25/17 Problem Qualifiers Bal KOEHLER MD Jul 25, 2017 11:37
[2017-07-25 11:52] LABS: BILIRUBIN,URINE NEGATIVE (NEG); GLUCOSE,URINE >=1000 mg/dL (NEG); NITRITE,URINE NEGATIVE (NEG); PROTEIN,URINE 100 mg/dL (NEG-TRACE); UROBILINOGEN,URINE 0.2 mg/dL (0.2 mg/dL)
[2017-07-25 11:57] LABS: BARBITURATES NEG (NEG); BENZODIAZEPINES NEG (NEG); CANNABINOIDS NEG (NEG); COCAINE NEG (NEG); METHADONE NEG (NEG); OPIATES NEG (NEG); PHENCYCLIDINE NEG (NEG)
[2017-07-25 12:01] LABS: BASO % 0 % (0-3); EOS % 0 % (0-3); HEMATOCRIT 32.6 % (36.0-47.0); HEMOGLOBIN 10.3 g/dL (12.0-15.5); LYMPH # 1.3 x10^3/uL (1.0-4.8); LYMPH % 13 % (24-48); MEAN CORPUSCULAR HEMOGLOBIN 24 pg (25-35); MEAN CORPUSCULAR HGB CONC 32 g/dL (31-37); MEAN CORPUSCULAR VOLUME 76 fL (79-100); MONO % 9 % (0-9); NEUT % 77 % (31-73); PLATELET COUNT 363 x10^3/uL (140-400); RED BLOOD COUNT 4.28 x10^6/uL (3.50-5.40); RED CELL DISTRIBUTION WIDTH 13.5 % (11.5-14.5); WHITE BLOOD COUNT 9.8 x10^3/uL (4.0-11.0)
[2017-07-25 12:13] LABS: BACTERIA,URINE MANY /HPF (0-FEW); SQUAMOUS EPITHELIAL CELL,UR MOD /LPF; WBC,URINE TNTC /HPF (0-4); YEAST,URINE PRESENT /HPF
[2017-07-25 12:32] LABS: ALBUMIN 2.7 g/dL (3.4-5.0); ALBUMIN/GLOBULIN RATIO 0.4 (1.0-1.7); CALCIUM 9.3 mg/dL (8.5-10.1); CREATININE 2.8 mg/dL (0.6-1.0); GFR 21.8; POTASSIUM 4.9 mmol/L (3.5-5.1); TOTAL BILIRUBIN 0.2 mg/dL (0.2-1.0); TOTAL PROTEIN 9.5 g/dL (6.4-8.2)
[2017-07-25] MEDS ORDERED: HYOSCYAMINE 0.125 MG TAB.RAPDIS PO PRN (13:15)
[2017-07-25] MEDS ORDERED: INSULIN REGULAR 100 UNIT/ML 10ML VIAL. IV ONE (13:45)
[2017-07-25] MEDS ORDERED: LABETALOL 20 MG/4 ML DISP.SYRIN. IVP ONE (14:00)
[2017-07-25 14:13] VITALS: BP 146/103
[2017-07-25] MEDS ORDERED: LOPE2CAP88 PO (15:05)
[2017-07-25] MEDS ORDERED: ONDA4TAB12 PO (15:05)
== END 2017-07-25 15:37 | disposition home or self-care (01) ==
LOC: ER 10:42
DX: R11.2 Nausea with vomiting, unspecified (principal); R19.7 Diarrhea, unspecified; E86.0 Dehydration; N17.9 Acute kidney failure, unspecified; E10.65 Type 1 diabetes mellitus with hyperglycemia; I11.0 Hypertensive heart disease with heart failure; I50.9 Heart failure, unspecified; M79.7 Fibromyalgia; Z79.899 Other long term (current) drug therapy
CPT/HCPCS: 36415; 80053; 80307; 81001; 81025; 82962; 85025; 87086; 96361; 96374; 96375; 99285; J1815; J2405; J3490; J7030; G0479